=== PATIENT | female | born 1970 | race Caucasian/White ===

== ENCOUNTER 2019-01-27 14:08 | Inpatient (IN) | payer BC ==
[~2019-01-27] VITALS: Ht 154.9 cm; Wt 113.1 kg
[2019-01-27] MEDS: SODIUM CHLORIDE 0.9% 1000ML 1,000 ML IV SCH
[~2019-01-27 14:08] MED LIST: ALLERCLEAR10 MG PO; AMIODARONE HCL200 MG PO; ASPIRIN325 MG PO; CARAFATE1 GM/10 ML PO; CARDIZEM CD180 MG PO; DICYCLOMINE HCL20 MG PO; ELIQUIS5 MG PO; ESOMEPRAZOLE MA40 MG PO; GLIMEPIRIDE2 MG PO; LISINOPRIL10 MG PO; METOPROLOL TART25 MG PO; OTEZLA30 MG PO; PIOGLITAZONE HC45 MG PO; PROGESTERONE200 MG PO; THYROID NP PO; ULTRAM50 MG PO; ZOFRAN4 MG PO
[2019-01-27 16:41] LABS: BASOPHILS % 0.1 % (0.0-1.0); EOSINOPHILS # (AUTO) 0.1 (0.0-0.4); EOSINOPHILS % 0.8 % (0.0-6.0); HEMATOCRIT 41.8 % (34.2-44.1); HEMOGLOBIN 13.4 g/dL (12.0-16.0); LYMPHOCYTES # (AUTO) 1.1 (1.0-3.2); LYMPHOCYTES % 7.3 % (18.0-39.1); MEAN CORPUSCULAR HGB CONC 32.1 g/dL (31-35); MEAN CORPUSCULAR VOLUME 87.3 fL (81-99); MONOCYTES # (AUTO) 0.8 (0.2-0.8); MONOCYTES % 5.4 % (4.4-11.3); NEUTROPHILS # (AUTO) 13.3 (2.1-6.9); NEUTROPHILS % 85.8 % (38.7-80.0); PLATELET COUNT 411 x10e3/uL (140-360); RED BLOOD COUNT 4.79 x10e6/uL (3.6-5.1); RED CELL DISTRIBUTION WIDTH 13.7 % (11.7-14.4)
[2019-01-27] MEDS ORDERED: MORPHINE SULFATE INJ 4 MG/ML INJ 1ML IV STA (16:47)
[2019-01-27] MEDS ORDERED: SODIUM CHLORIDE 0.9% 1000ML 1,000 ML IV STA ×2 (16:47)
[2019-01-27] MEDS ORDERED: FAMOTIDINE 20 MG/2 ML VIAL IV STA (16:47)
[2019-01-27] MEDS ORDERED: ONDANSETRON HCL INJ 2MG/ML 2ML 2 MG/ML VIAL IV STA (16:47)
[2019-01-27 17:03] LABS: ALBUMIN 3.5 g/dL (3.5-5.0); ALBUMIN/GLOBULIN RATIO 0.8 (0.8-2.0); ANION GAP 17.2 mmol/L (8-16); CALCIUM 9.4 mg/dL (8.4-10.2); CREATININE, SERUM 1.59 mg/dL (0.57-1.11); POTASSIUM 4.2 mmol/L (3.5-5.1)
[2019-01-27] MEDS ORDERED: DIATRIZOATE MEGL/DIATRIZOA SOD 30 ML BTL PO ONE (17:29)
[2019-01-27] MEDS ORDERED: MIDAZOLAM HCL 2 MG/2 ML VIAL ONE (17:47)
[2019-01-27] MEDS ORDERED: FENTANYL CITRATE/PF 100MCG/2 ML INJ ONE (17:47)
[2019-01-27] MEDS ORDERED: PROPOFOL IV EMULSION 10 MG/ML 20 ML VIAL ONE (18:20)
[2019-01-27] MEDS ORDERED: SEVOFLURANE INHAL SOLN 250 ML PEN BTL ONE (18:20)
[2019-01-27] MEDS ORDERED: ONDANSETRON HCL INJ 2MG/ML 2ML 2 MG/ML VIAL ONE (18:20)
[2019-01-27] MEDS ORDERED: ROCURONIUM BROMIDE 10 MG/ML 5ML VIAL ONE (18:20)
[2019-01-27] MEDS ORDERED: DEXAMETHASONE SOD PHOS INJ 4 MG/ML VIAL ONE (18:20)
[2019-01-27] MEDS ORDERED: LIDOCAINE HCL 2% LOCAL INJ 5 ML SDV VIAL INJ ONE (18:20)
[2019-01-27] MEDS ORDERED: SUCCINYLCHOLINE CHLORIDE 20 MG/ML 10ML VIAL ONE (18:20)
--- NOTE | 2019-01-27 18:38 | Diagnostic Imaging Report ---
EXAMINATION: CHEST SINGLE (PORTABLE) INDICATION: Pain. ^ERMD ORDER ^Y COMPARISON: 01/22/2019. FINDINGS: TUBES and LINES: None. Left sided PICC line has been removed. Mild bibasilar atelectasis. Scalloping of the right hemidiaphragm. There is no evidence of pneumonia or pulmonary edema. PLEURA: No pleural effusion or pneumothorax. HEART AND MEDIASTINUM: Cardiac size is mildly enlarged. BONES AND SOFT TISSUES: No acute osseous lesion. Soft tissues are unremarkable. UPPER ABDOMEN: No free air under the diaphragm. Tube projected on the epigastric region to the left of midline may be overlying. IMPRESSION: No acute thoracic abnormality. Signed by: Dr. Rosi Toney M.D. on 01/27/2019 6:35 PM
[2019-01-27 19:17] LABS: CREATINE KINASE MB 0.4 ng/mL (0-5.0); THYROID STIMULATING HORMONE 2.391 uIU/mL (0.350-4.940)
[2019-01-27] MEDS ORDERED: DEXTROSE 50% SYRINGE 50 ML IV PRN (19:45)
[2019-01-27] MEDS ORDERED: ONDANSETRON HCL INJ 2MG/ML 2ML 2 MG/ML VIAL IV PRN (19:45)
--- NOTE | 2019-01-27 19:45 | Diagnostic Imaging Report ---
EXAM: CT Chest, Abdomen and Pelvis WITHOUT contrast INDICATION: Abdominal pain. Shortness of breath. Bilateral leakage? COMPARISON: None. TECHNIQUE: Chest, abdomen and pelvis were scanned utilizing a multidetector helical scanner from the lung apex to the pubic symphysis without administration of IV contrast. Absence of intravenous contrast decreases sensitivity for detection of focal lesions and vascular pathology. Coronal and sagittal reformations were obtained. Routine protocol was performed. IV CONTRAST: None. ORAL CONTRAST: Gastrografin and water mixture. RADIATION DOSE: Total DLP: 1032.28 mGy*cm Estimated effective dose: (DLP x 0.015 x size factor) mSv COMPLICATIONS: None FINDINGS: Lack of intravenous limits evaluation. LINES and TUBES: Right upper quadrant surgical drain with distal tip in the left upper quadrant anteriorly just superior to the gastric body on image 49 series 2. LUNGS AND AIRWAYS: The lungs are unremarkable. Airways are normal. PLEURA: The pleural spaces are clear. HEART AND MEDIASTINUM: The thyroid gland is normal. No mediastinal, hilar or axillary lymphadenopathy. The heart is normal in size.. There is no pericardial effusion. There are mild atherosclerotic calcifications in the aorta and coronary arteries. HEPATOBILIARY: No focal hepatic lesions. No biliary ductal dilation. GALLBLADDER: There are cholecystectomy clips. SPLEEN: No splenomegaly. Punctate calcified granulomata. PANCREAS: No focal masses or ductal dilatation. ADRENALS: No adrenal nodules KIDNEYS/URETERS: 5 mm calculus in the distal right ureter on image 95 series 2, resulting in mild right hydroureteronephrosis. No cystic or solid mass lesions. Multiple right renal calculi, the largest measuring 1.1 cm in the lower pole on image 78. The left kidney is not visualized. GI TRACT: Postsurgical changes consistent with status post gastric bypass. There is oral contrast within the stomach and proximal small bowel without evidence of extra luminal contrast extravasation. There is no contrast within the bypassed portions of the stomach. The appendix is unremarkable. The colon is decompressed. There is fat stranding about the proximal descending colon posteriorly as seen on image 67 series 2, nonspecific, possibly postoperative. PELVIC ORGANS/BLADDER: Unremarkable. LYMPH NODES: No lymphadenopathy. VESSELS: Unremarkable. PERITONEUM / RETROPERITONEUM: Small amount of free fluid in the abdomen. Perigastric fat stranding, likely postoperative without likely fluid collections. BONES: There are degenerative changes in the lumbar spine. SOFT TISSUES: Unremarkable. IMPRESSION: 1. 5 mm calculus within the distal right ureter resulting in mild right hydroureteronephrosis. A few additional Nonobstructing right renal calculi. 2. Status post gastric bypass without evidence of leakage or obstruction. 3. No acute thoracic abnormality. Signed by: Dr. Rosi Toney M.D. on 01/27/2019 7:42 PM
[2019-01-27 20:00] VITALS: BP 120/55
[2019-01-27] MEDS ORDERED: CEFTRIAXONE SOD 1 GM/NS 50 ML 50 ML IV ONE (20:00)
[2019-01-27] MEDS ORDERED: MORPHINE SULFATE INJ 4 MG/ML INJ 1ML IV PRN (20:00)
[2019-01-27] MEDS ORDERED: SODIUM CHLORIDE 0.9% 1000ML 1,000 ML IV SCH (20:00)
--- NOTE | 2019-01-27 20:55 | NUR ---
OR STAFF ON UNIT TO TAKE PATIENT TO SURGERY
[2019-01-27] MEDS: INSULIN REGULAR, HUMAN 100 UNIT/1 ML 3ML VIAL SQ SCH (21:00)
[2019-01-27] MEDS ORDERED: B&O 60MG R/S 60 MG SUPP PR ONE (21:15)
[2019-01-27] MEDS ORDERED: IOPAMIDOL 300MG/ML 50ML INFUS..BTL IV ONE (21:15)
[2019-01-27] MEDS ORDERED: B&O 60MG R/S 60 MG SUPP PR PRN (21:30)
[2019-01-27 22:46] LABS: BACTERIA,URINE MANY /HPF; EPITHELIAL CELLS,URINE FEW /LPF; RBC,URINE >50 /HPF (0-5)
[2019-01-27 22:49] LABS: CLARITY,URINE CLOUDY (CLEAR); COLOR,URINE STRAW (YELLOW)
[2019-01-27 22:50] LABS: BILIRUBIN,URINE MODERATE (NEGATIVE); KETONES,URINE 1+ (NEGATIVE); LEUKOCYTE ESTERASE ,URINE NEGATIVE (NEGATIVE); NITRITE,URINE POSITIVE (NEGATIVE); PROTEIN,URINE DIPSTICK 2+ (NEGATIVE); URINE UROBILINOGEN 0.2 mg/dL (0.2 - 1)
[2019-01-27 23:00] VITALS: BP 120/55
--- NOTE | 2019-01-27 23:00 | NUR ---
Pt admitted to room 103. Pt alert to name, hospital, time, and diagnosis. Pt had cystoscopy and retrograde repair with right stent placement today. Pt transferred via stretcher with standby assist to bed. 20Fr Coude Pimentel straw colored urine, with no clots. Hx x1 week gastric sleeve with leak, MATT drainage with x3 healing trocar sites. New onset afib, hx left nephrectomy. Last BM 01/27. Skin arm and dry, excoriation under bilateral breasts and abdominal skin folds. Blanchable redness to sacrum. Denies SOB, denies pain at this time. Oriented to room, call light within reach. Bed low and locked.
[2019-01-28] VITALS (8 sets, daily range): BP systolic 107–142; BP diastolic 52–68
--- NOTE | 2019-01-28 00:51 | Consultation ---
DATE OF CONSULTATION: 01/27/2019 Urology Consultation. REASON FOR CONSULTATION: Obstructive uropathy. HISTORY OF PRESENT ILLNESS: Deepa Torrez is a 48-year-old woman with a history of an acquired solitary right kidney. The patient is status post total left nephrectomy for an atrophic left kidney. This is due to recurrent stone disease. This was done at the [facility] by Dr. Agee. The patient has a complicated recent medical history, but developed severe right-sided flank pain reported the emergency room, was determined to be in renal colic due to an obstructing distal right ureteral stone. The patient had smaller renal stones that were nonobstructing in the same kidney. She has hydronephrosis to that stone. She also has acute renal failure as a result. There was not enough urine collected to perform any additional tests beyond a urine test which was negative. The patient has been aneuric since she started this attack. PAST MEDICAL SURGICAL HISTORY: 1. Status post gastric bypass on 01/19/2019. 2. Atrial fibrillation diagnosed 01/20/2019. 3. Take back to the operating room for repair of an anastomotic leak 01/21/2019. 4. Status post left nephrectomy. 5. Status post total abdominal hysterectomy, bilateral salpingo-oophorectomy. 6. zero, para zero. 7. Diabetes mellitus. 8. Hypertension. 9. Hyperlipidemia. 10. Morbid obesity. 11. Ex-smoker. ALLERGIES: SULFA. CURRENT MEDICATIONS: Please refer to the MAR. SOCIAL HISTORY: The patient denies smoking ethanol and drug use. She chews nicotine gum. She used to smoke two packs per day of cigarettes, but quit two years ago. 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 She has supportive family at the bedside. FAMILY HISTORY: Noncontributory to the active urological problems. REVIEW OF SYSTEMS: Discussed as above in the history of present illness and past medical history, otherwise negative for all systems. PHYSICAL EXAMINATION: GENERAL: Morbidly obese woman lying in bed, in no apparent distress she is currently afebrile. VITAL SIGNS: Currently stable. ABDOMEN: Soft, nondistended. It is obese. It is tender in the right flank with right costovertebral angle tenderness. Kidneys not palpable without hepatosplenomegaly. No obvious evidence of hernia. There are intact incisions. For the remaining physical examination systems please refer to the admission history and physical as well as the ERT sheet. LABORATORY STUDIES: The patient's sodium is low at 134 her creatinine is elevated [place] 1.59[place] [address], hemoglobin 13.4, platelets 411,000, urinalysis was not performed due to inadequate urine and she had a negative test. CT scan of the abdomen and pelvis was done with oral contrast only. It revealed a 5 mm calculus in the distal right ureter with right hydroureteronephrosis with multiple renal calculi measuring 1.16 cm in the lower pole. The left kidney is absent. ASSESSMENT: 1. Solitary right kidney. 2. History of recurrent urolithiasis. 3. Right renal colic. 4. Right distal ureterolithiasis. 5. Right nephrolithiasis. 6. Right hydroureteronephrosis due to stone. 7. Acute renal failure. 8. Obesity. 9. Hyponatremia. 10. Leukocytosis. PLAN: 1. The patient received a dose of Rocephin by the emergency room physician. 2. I posted the patient for stat cystoscopy, retrograde pyelograms and insertion of stent. 3. The patient understands that she will have a temporary indwelling ureteral stent, requires followup and removal as well as additional stone management for her right nephrolithiasis. 4. I defer the hematological and electrolyte abnormalities to the admitting physician. 5. Ongoing urological followup is must including the performance of a metabolic stone workup. This will be done once we have rendered the patient stent free and stone free. Thank you much for involving us in care of your patient. We will be happy to follow her along with you as well as an outpatient. Clint Jimenez MD OH/MODL /[id number] cc: MD Jeffrey Jaramillo
[2019-01-28] MEDS: SODIUM CHLORIDE 0.9% 1000ML 1,000 ML IV SCH ×3 (03:37→20:15)
--- NOTE | 2019-01-28 04:13 | Operative Report ---
DATE OF PROCEDURE: 01/27/2019 SURGEON: Clint Jimenez MD PREOPERATIVE DIAGNOSES: 1. Right hydronephrosis due to stone. 2. Gross hematuria. POSTOPERATIVE DIAGNOSES: 1. Right hydronephrosis due to stone. 2. Gross hematuria. 3. Grade 1 cystocele. 4. Grade 1 rectocele. 5. Atrophic (senile) vaginitis. OPERATIONS PERFORMED: 1. Cystourethroscopy with bilateral ureteral catheterization and retrograde ureteropyelography (separate procedure performed for the hematuria). 2. Interpretation of retrograde ureteropyelography. 3. Supervision of fluoroscopy, no radiologist present. 4. Cystourethroscopy with insertion of right indwelling ureteral stent (separate procedure performed to relieve the hydronephrosis). 5. Pelvic examination under anesthesia. ANESTHESIA: General. COMPLICATIONS: None. CLINICAL SUMMARY: Deepa Torrez is a 48-year-old woman with a complex and an acute emergent problem. Please refer to consultation dictation from the same date. OPERATIVE PROCEDURE IN DETAIL: Informed consent was verified. Deepa Torrez was properly identified taken to the operating room, placed on the cystoscopy table in supine position. Anesthesia was uneventfully begun. The patient was then carefully gently repositioned in dorsal lithotomy position with all pressure points well padded. Her genitalia were prepared and draped in usual sterile fashion. The 22.5-Mohawk cystoscope sheath with obturator in place was atraumatically inserted into the patient's urethra and bladder was drained. Panendoscopy of the bladder revealed no suspicious mucosal lesions, no tumors, no stones, no diverticula. Normally positioned configured ureteral orifices were identified. There was a 22.5-Mohawk cystoscope sheath with obturator in place was atraumatically inserted in the patient's urethra. The bladder was drained of 30 mL of bloody urine. The urine was collected and sent for culture and sensitivity. Panendoscopy of the bladder revealed no suspicious mucosal lesions, no tumors, no stones. Normally positioned configured ureteral orifices were identified. There was trigonitis that was noted. An open-ended catheter was used to cannulate the left ureter and retrograde ureteral pyelograms were performed. It was then inserted in the right ureter and retrograde ureteral pyelograms were performed. With cystoscopic and fluoroscopic guidance, the right-sided indwelling ureteral stent was then placed it was coiled in the patient's kidneys as well as the patient's bladder. The retaining suture was cut short. The cystoscope was withdrawn. Pimentel catheter was placed, irrigated to and fro to ensure work properly. Pelvic examination under anesthesia revealed a minimal cystocele, minimal rectocele with atrophic (senile) vaginitis. No abnormal palpable pelvic masses could be appreciated. There were no obvious mucosal lesions. A belladonna and opium suppository were placed. The patient was uneventfully reversed from anesthesia, taken to recovery room in stable condition. Interpretation of retrograde ureteropyelography contrast was instilled in a retrograde fashion bilaterally. The left ureter had a cutoff sign at the location of the kidney consistent with prior nephrectomy. The ureter did not exhibit any filling defects and unobstructed drainage was observed fluoroscopically. The right hand side exhibited a filling defect corresponding to the stone noted on CT. A few centimeter proximal to the ureteral orifice. There was significant hydroureteronephrosis proximal to this filling defect which was freely floating in retrograde fashion from its region of obstruction. The stent was in good position coiled the patient's kidney as well as the bladder at the end of the case. We did not opacify the system well in order to avoid over injection of potentially infected system into potentially infected system that could potentially produce sepsis. Therefore, we opacified the system only enough in order to delineate the anatomy adequately for stent placement. There were no complications of the procedure. The patient tolerated the procedure well. Estimated blood loss was minimal. We will plan on admitting on proceeding with admission of the patient, close monitoring and of course ongoing urological followup. Stone management will be done electively at the later point once the patient is in her usual state of health. Clint Jimenez MD OH/MODL /[id number] cc: Clint Jimenez MD
[2019-01-28 05:31] LABS: BASOPHILS % 0.4 % (0.0-1.0); EOSINOPHILS # (AUTO) 0.4 (0.0-0.4); EOSINOPHILS % 3.3 % (0.0-6.0); HEMATOCRIT 35.9 % (34.2-44.1); LYMPHOCYTES # (AUTO) 2.2 (1.0-3.2); LYMPHOCYTES % 20.5 % (18.0-39.1); MEAN CORPUSCULAR HEMOGLOBIN 27.4 pg (28-32); MEAN CORPUSCULAR HGB CONC 30.6 g/dL (31-35); MEAN CORPUSCULAR VOLUME 89.5 fL (81-99); MONOCYTES % 9.4 % (4.4-11.3); NEUTROPHILS # (AUTO) 6.9 (2.1-6.9); NEUTROPHILS % 65.9 % (38.7-80.0); PLATELET COUNT 313 x10e3/uL (140-360); RED BLOOD COUNT 4.01 x10e6/uL (3.6-5.1); RED CELL DISTRIBUTION WIDTH 13.9 % (11.7-14.4)
[2019-01-28 05:53] LABS: ALBUMIN 2.8 g/dL (3.5-5.0); ALBUMIN/GLOBULIN RATIO 0.8 (0.8-2.0); ANION GAP 12.9 mmol/L (8-16); CALCIUM 8.2 mg/dL (8.4-10.2); CREATININE, SERUM 1.27 mg/dL (0.57-1.11); MAGNESIUM 2.1 MG/DL (1.3-2.1); PHOSPHORUS 4.4 MG/DL (2.3-4.7); POTASSIUM 3.9 mmol/L (3.5-5.1)
--- NOTE | 2019-01-28 07:00 | NUR ---
Report given to morning nurse. Pt sitting quietly in recliner. No acute distress noted.
--- NOTE | 2019-01-28 07:05 | NUR ---
BEDSIDE SHIFT REPORT RECEIVED FROM RN PHYSICIAN OFFICE RN. PT DENIES NEEDS AT THIS TIME.
[2019-01-28] MEDS: INSULIN REGULAR, HUMAN 100 UNIT/1 ML 3ML VIAL SQ SCH ×4 (07:30→20:16)
--- NOTE | 2019-01-28 07:54 | NUR ---
HPI: Patient presented to hospital last night with right flank pain and work up revealed acute renal insufficiency, right sided renal calculus with hydronephros is. She underwent emergency cystoscopy and ureteral stent placement last night with Dr. Clint Jimenez. She feels better today and her WBC has come down. P.E.: General- no acute distress Abdomen- soft, MATT output serosanguineous A/P: Hydronephrosis with HANK s/p Lap edmundo en y gastric bypass 01/19/19, s/p revision anastomosis 01/21/19, s/p right ureteral stent placement 01/27/19 -OK to dc the MATT drain -Advance to pureed diet -F/u in clinic in February
--- NOTE | 2019-01-28 08:48 | Diagnostic Imaging Report ---
Chest, 1 view, 01/28/2019. History: Shortness of breath. Comparison: 01/27/2019. Findings: The cardiomediastinal silhouette and pulmonary vasculature are within normal limits for a portable exam. There is no focal consolidation or pleural effusion. There are no acute osseous or soft tissue abnormalities. Impression: No acute cardiopulmonary abnormality. Signed by: Philip Mclain on 01/28/2019 8:45 AM
[2019-01-28] MEDS: CEFTRIAXONE SOD 1 GM/NS 50 ML 50 ML IV SCH ×2 (08:50→20:15)
[2019-01-28] MEDS ORDERED: ONDANSETRON HCL 4 MG ORAL DISINTEGRATING TAB PO PRN (10:00)
--- NOTE | 2019-01-28 10:34 | History and Physical ---
CHIEF COMPLAINT: Right flank pain. HISTORY OF PRESENT ILLNESS: This is a 48-year-old white woman, who presents to [facility] with 1-day history of worsening right flank pain, accompanied by nausea, but no vomiting. The patient also states one day prior to admission, she noticed dark malodorous urine, but denies any dysuria or urinary frequency. In the emergency room, she was found have urinary tract infection and a CT of the abdomen and pelvis without intravenous contrast revealed an obstructing 5 mm calculus in the right ureter causing hydroureteronephrosis. The patient was also found to have a few additional nonobstructing right renal calculi. This woman only has one kidney on the right side. The patient was seen by Urology immediately, namely Dr. Clint Jimenez, who took the patient to the operating room and performed cystourethroscopy with insertion of a right indwelling ureteral stent. The patient also underwent retrograde ureteropyelography. The patient tolerated surgery quite well. In the emergency room, she was found to have white blood cell count of 15,400 with 85% segmented neutrophils. This morning, white blood cell count 10,500 with 65% segmented neutrophils. Urinalysis performed in the emergency room, revealed cloudy urine with 2+ protein, 1+ ketones, 2+ blood, positive nitrates, moderate bilirubin, greater than 50 red blood cells per high-power field and 11 to 20 white blood cells per high-power field. Urinalysis also revealed many bacteria. In the emergency room, the patient was found to have a BUN and creatinine of 19 and 1.59 respectively. Today's BUN and creatinine after intravenous fluids and placement of a ureteral stent is 16 and 1.27 respectively. The patient was actually just admitted to [facility] last week for elective bariatric surgery, namely laparoscopic Jean-en-Y gastric bypass. Unfortunately, the patient developed an anastomotic leak, the causative experienced sepsis which led atrial flutter. The patient was seen by Cardiology, was started on appropriate cardiac medications. The patient was taken back to the operating room by her Bariatric Surgeon, namely Dr. Stef Donnelly, who performed a laparoscopic revision of gastrojejunostomy with placement of intraperitoneal drain. The patient subsequently underwent upper GI series with contrast that did not reveal any evidence of anastomotic leak after the revision. The patient was actually just sent home from [facility] on Saturday, January 24, 2019, REVIEW OF SYSTEMS: GENERAL: No fever or chills. Weight is stable. HEENT: No headaches. No visual changes. CARDIOVASCULAR/RESPIRATORY: No chest pain. No short of breath or cough. No palpitations. She was diagnosed with paraesophageal atrial flutter last week, that was thought to be secondary to anastomotic leak. GI: Complaint intense nausea yesterday on day of admission, but no vomiting. : The patient stated that her urine was dark and malodorous for one day, but denies any urinary frequency. She did complain of worsening right-sided flank pain for one day prior to admission. NEUROMUSCULAR: Right-sided flank pain as per HPI. No limb weakness or numbness. ALLERGIES: SULFA ANTIBIOTICS. HOME MEDICATIONS: 1. Amiodarone 200 mg b.i.d. 2. Apixaban 5 mg b.i.d. 3. Otezla 30 mg b.i.d. 4. Diltiazem CD 180 mg daily. 5. Esomeprazole 40 mg daily. 6. Lisinopril 10 mg at bedtime. 7. Loratadine 10 mg daily. 8. Metoprolol tartrate 25 mg b.i.d. 9. Ondansetron 4 mg every 6 hours p.r.n. nausea, vomiting. 10. Pioglitazone 30 mg daily. 11. Progesterone 200 mg at bedtime. 12. Tramadol 50 mg q.6 hours p.r.n. pain. 13. Thyroid replacement therapy once daily. PAST MEDICAL HISTORY: 1. Extreme obesity, BMI 51. 2. Sleep apnea. 3. Type 2 diabetes mellitus. 4. Hypertensive heart disease. 5. Gastroesophageal reflux disease. 6. Hypothyroidism. 7. Psoriatic arthritis. 8. Recurrent kidney stones. 9. 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 PAST SURGICAL HISTORY: 1. Laparoscopic Jean-en-Y gastric bypass on January 19, 2019. 2. Laparoscopic revision of gastrojejunostomy with placement of intraperitoneal drain on January 21, 2019. 3. Right knee arthroscopy. 4. Hysterectomy. 5. Tonsillectomy. 6. Laparoscopic cholecystectomy. 7. Left nephrectomy because of complications from left-sided fungal pyelonephritis/scarring. FAMILY HISTORY: Multiple members with hypertension and diabetes mellitus. SOCIAL HISTORY: This woman is employed. This woman has a female significant other, who is very much involved in her health care needs. 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 The patient states she quit smoking tobacco in 2017. The patient states she drinks alcohol rarely. The patient states she does chew nicotine gum to help continue her tobacco cessation. PHYSICAL EXAMINATION: GENERAL: She is awake, alert, in no distress. Very pleasant. Her female partner is at bedside. VITAL SIGNS: Height 5 feet 1 inch, weight 250 pounds, BMI 47. Blood pressure is 142/68, pulse 64, respiratory rate 16, temperature 98.2, and oxygen saturation 100% on room air. INTEGUMENT: Skin is warm and dry. No pallor, jaundice, or diaphoresis. The patient has numerous tattoos. HEENT: Clear moist mucous membranes. NECK: Supple. CARDIOVASCULAR: Distant heart sounds. Regular rate and rhythm with an S4 gallop. LUNGS: No rales, rhonchi, or wheezes. ABDOMEN: Soft. She has an intraperitoneal drain in place from last week's bariatric surgery that has serosanguinous fluid. She has bowel sounds in all four quadrants. EXTREMITIES: No edema or deformity. NEUROLOGIC: Intact. No focal deficits appreciated. DIAGNOSIS: 1. Right obstructing ureteral stone with hydronephrosis. 2. Urinary tract infection. 3. Extreme obesity, BMI 47, complicated with underlying hypertension, diabetes mellitus, sleep apnea. 4. Recent laparoscopic Jean-en-Y gastric bypass on January 19, 2019. 5. Recent laparoscopic revision of gastrojejunostomy to repair anastomotic leak on January 21, 2019. 6. Recent atrial flutter. 7. Hypertensive heart disease. 8. Obstructive sleep apnea. 9. Type 2 diabetes mellitus. 10. Acute renal insufficiency, secondary to postobstructive process (right-sided kidney stone). 11. Status post right-sided indwelling ureteral stent placement. PLAN: 1. Appreciate Urology's emergent placement of right-sided ureteral stent. 2. Intravenous fluids. 3. Follow renal function. 4. Follow urine culture. 5. Intravenous antibiotics for the patient's urinary tract infection. 6. Place on telemetry. 7. Continue cardiac medications. 8. Pain control. I spent an hour in the care of this patient. MD AMAURI Ferguson/MACHO /[id number] MTDAdrienne
--- NOTE | 2019-01-28 11:14 | NUR ---
MATT DRAIN DC'D AT THIS TIME. TIP INTACT. PT TOLERATED. NEW DRESSING PLACED.
[2019-01-28 11:40] LABS: INR 1.3; PARTIAL THROMBOPLASTIN TIME 37.2 seconds (23.8-35.5); PROTHROMBIN TIME 15.4 seconds (11.9-14.5)
[2019-01-28] MEDS: PIOGLITAZONE HCL 15 MG TAB PO SCH (11:59)
[2019-01-28] MEDS: METOPROLOL TARTRATE 25 MG TAB PO SCH ×2 (12:00→17:38)
[2019-01-28] MEDS: DILTIAZEM HCL 180 MG CAP ER PO SCH (12:02)
[2019-01-28] MEDS: LORATADINE 10 MG TAB PO SCH (12:03)
[2019-01-28] MEDS: PANTOPRAZOLE SOD 40 MG TABEC PO SCH (12:05)
[2019-01-28] MEDS: APREMILAST 30 MG PO SCH (17:00)
[2019-01-28] MEDS: APIXABAN 5 MG TABLET PO SCH (17:38)
[2019-01-28] MEDS: AMIODARONE HCL 200 MG TAB PO SCH (17:38)
[2019-01-28] MEDS: PHENAZOPYRIDINE HCL 100 MG TAB PO PRN (20:35)
[2019-01-28] MEDS: TRAMADOL HCL 50 MG TAB PO PRN (20:39)
[2019-01-28] MEDS: LISINOPRIL 10 MG TAB PO SCH (20:40)
--- NOTE | 2019-01-28 21:30 | NUR ---
No resp.distress.pain medication given.pericare given.iv fluid running.bed locked and in lowest position.phone and call light within reach.instructed to call for assistance as needed.
[2019-01-29] VITALS (8 sets, daily range): BP systolic 110–135; BP diastolic 53–65
[2019-01-29] MEDS: SODIUM CHLORIDE 0.9% 1000ML 1,000 ML IV SCH (03:37)
[2019-01-29 05:40] LABS: BASOPHILS % 0.4 % (0.0-1.0); EOSINOPHILS # (AUTO) 0.5 (0.0-0.4); EOSINOPHILS % 5.4 % (0.0-6.0); HEMATOCRIT 35.7 % (34.2-44.1); HEMOGLOBIN 10.9 g/dL (12.0-16.0); LYMPHOCYTES # (AUTO) 2.3 (1.0-3.2); MEAN CORPUSCULAR HEMOGLOBIN 27.5 pg (28-32); MEAN CORPUSCULAR HGB CONC 30.5 g/dL (31-35); MEAN CORPUSCULAR VOLUME 90.2 fL (81-99); MONOCYTES # (AUTO) 0.8 (0.2-0.8); MONOCYTES % 9.1 % (4.4-11.3); NEUTROPHILS # (AUTO) 4.8 (2.1-6.9); NEUTROPHILS % 57.6 % (38.7-80.0); PLATELET COUNT 322 x10e3/uL (140-360); RED BLOOD COUNT 3.96 x10e6/uL (3.6-5.1); RED CELL DISTRIBUTION WIDTH 14.1 % (11.7-14.4)
[2019-01-29] MEDS: PHENAZOPYRIDINE HCL 100 MG TAB PO PRN ×2 (05:48→12:06)
[2019-01-29] MEDS: TRAMADOL HCL 50 MG TAB PO PRN ×2 (05:48→12:07)
[2019-01-29 06:02] LABS: ALBUMIN 2.7 g/dL (3.5-5.0); ALBUMIN/GLOBULIN RATIO 0.8 (0.8-2.0); ANION GAP 10.8 mmol/L (8-16); CALCIUM 8.4 mg/dL (8.4-10.2); CREATININE, SERUM 1.13 mg/dL (0.57-1.11); POTASSIUM 4.8 mmol/L (3.5-5.1)
--- NOTE | 2019-01-29 07:00 | NUR ---
BED SIDE SHIFT REPORT GIVEN TO THE ONCOMING RN.STABLE CONDITION.
--- NOTE | 2019-01-29 07:01 | NUR ---
walking rounds completed, change of shift report received from manager shift RN, pt resting, no signs of distress. will continue to assess.
[2019-01-29] MEDS: INSULIN REGULAR, HUMAN 100 UNIT/1 ML 3ML VIAL SQ SCH ×4 (07:30→21:00)
[2019-01-29] MEDS: CEFTRIAXONE SOD 1 GM/NS 50 ML 50 ML IV SCH (08:00)
[2019-01-29] MEDS: METOPROLOL TARTRATE 25 MG TAB PO SCH ×2 (09:00→17:05)
[2019-01-29] MEDS: APREMILAST 30 MG PO SCH ×2 (09:00→16:53)
[2019-01-29] MEDS: PANTOPRAZOLE SOD 40 MG TABEC PO SCH (09:43)
[2019-01-29] MEDS: PIOGLITAZONE HCL 15 MG TAB PO SCH (09:44)
[2019-01-29] MEDS: AMIODARONE HCL 200 MG TAB PO SCH ×2 (09:46→17:05)
[2019-01-29] MEDS: APIXABAN 5 MG TABLET PO SCH ×2 (09:46→17:05)
[2019-01-29] MEDS: DILTIAZEM HCL 180 MG CAP ER PO SCH (09:46)
[2019-01-29] MEDS: LORATADINE 10 MG TAB PO SCH (09:46)
--- NOTE | 2019-01-29 09:47 | NUR ---
CANAS DC'D AT THIS TIME. TIP INTACT, PT TOLERATED. PT DUE TO VOID BY 1600. SERIAL URINE ORDERED.
--- NOTE | 2019-01-29 19:00 | NUR ---
RECEIVED THE PT IN REPORT.LYEING IN THE RECYLINER.STABLE CONDITION.
[2019-01-29] MEDS: LISINOPRIL 10 MG TAB PO SCH (21:00)
--- NOTE | 2019-01-29 23:53 | NUR ---
Collecting serial urine.aaox4.ambulates.resting .stable condition.
[2019-01-30] VITALS: BP 166/62
[2019-01-30] MEDS: PHENAZOPYRIDINE HCL 100 MG TAB PO PRN (02:49)
[2019-01-30] MEDS: TRAMADOL HCL 50 MG TAB PO PRN (02:50)
--- NOTE | 2019-01-30 03:10 | Consultation ---
DATE OF CONSULTATION: 01/29/2019 Cardiology Consult Note REASON FOR CONSULT: History of atrial flutter with RVR. CHIEF COMPLAINT: Right flank pain. HISTORY OF PRESENT ILLNESS: A 48-year-old woman, who is known to our service, morbidly obese, status post gastric bypass surgery, was recently admitted to the hospital and was noted to have atrial flutter with RVR with wide-complex aberrancy, converted to sinus rhythm with IV amiodarone and started on anticoagulation, was discharged recently but presented once again with flank pain and suspected UTI. Currently, she is asymptomatic from a cardiovascular standpoint. Reports leg pain. Denies any chest pain, palpitations, syncope, or heart failure symptoms. REVIEW OF SYSTEMS: As per HPI, otherwise negative. ALLERGIES: TO SULFA, ANTIBIOTICS. OUTPATIENT MEDICATIONS: Reviewed. Please see MAR for details. PAST MEDICAL HISTORY: 1. Morbid obesity. 2. Sleep apnea. 3. Diabetes. 4. Hypertension. 5. GERD. 6. Hypothyroidism. 7. Psoriatic arthritis. 8. Recurrent kidney stones. 9. History of left nephrectomy. PAST SURGICAL HISTORY: 1. Laparoscopic Jean-en-Y gastric bypass on January 19, 2019. 2. Laparoscopic revision of gastrojejunostomy with placement of intraperitoneal drain on January 21. 3. Right knee surgery. 4. Hysterectomy. 5. Tonsillectomy. 6. Laparoscopic cholecystectomy. 7. Left nephrectomy because of complications from pyelonephritis. FAMILY HISTORY: Noncontributory. SOCIAL HISTORY: She does not smoke, drink, or abuse drugs. PHYSICAL EXAMINATION: VITAL SIGNS: Temperature afebrile, pulse 64, blood pressure 142/68, saturating 100% on room air. GENERAL: A well developed, well nourished, morbidly obese, in no acute distress. CARDIOVASCULAR: Difficult exam due to obesity. Regular rate and rhythm. No murmurs, rubs, or gallops. LUNGS: Clear to auscultation. ABDOMEN: Very obese, soft, nontender. Drain in place. EXTREMITIES: No edema. NEURO AND PSYCH: Alert and oriented to person, place, and time. Normal affect. INPATIENT MEDICATIONS: Reviewed. LABORATORY DATA: Reviewed. TELEMETRY DATA: Reviewed, shows normal sinus rhythm. ASSESSMENT AND PLAN: 1. Atrial flutter, currently in sinus rhythm. 2. Right obstructing ureteral stone with hydronephrosis. 3. Urinary tract infection. 4. History of obesity, status post recent gastric bypass complicated by anastomotic leak, status post repair. 5. Hypertensive heart disease. PLAN: Continue apixaban and amiodarone. Remains in sinus rhythm. We will continue to follow. Thank you for this consult. MD TAMIKO Avendaño/MACHO /[id number]
[2019-01-30 04:00] VITALS: BP 101/46
[2019-01-30 06:21] LABS: ALBUMIN 2.8 g/dL (3.5-5.0); ALBUMIN/GLOBULIN RATIO 0.9 (0.8-2.0); ANION GAP 13.3 mmol/L (8-16); CALCIUM 8.2 mg/dL (8.4-10.2); CREATININE, SERUM 1.12 mg/dL (0.57-1.11); POTASSIUM 4.3 mmol/L (3.5-5.1)
--- NOTE | 2019-01-30 07:00 | NUR ---
Bed side shift report given to the oncoming Rn.stable condition.
--- NOTE | 2019-01-30 07:01 | NUR ---
walking rounds completed and shift change report received from retail shift supervisor RN. pt resting, in stable condition.
[2019-01-30 07:02] LABS: BASOPHILS % 0.2 % (0.0-1.0); EOSINOPHILS # (AUTO) 0.5 (0.0-0.4); EOSINOPHILS % 5.4 % (0.0-6.0); HEMATOCRIT 34.3 % (34.2-44.1); HEMOGLOBIN 10.5 g/dL (12.0-16.0); LYMPHOCYTES % 23.6 % (18.0-39.1); MEAN CORPUSCULAR HEMOGLOBIN 27.9 pg (28-32); MEAN CORPUSCULAR HGB CONC 30.6 g/dL (31-35); MONOCYTES # (AUTO) 0.9 (0.2-0.8); MONOCYTES % 10.5 % (4.4-11.3); NEUTROPHILS # (AUTO) 5.1 (2.1-6.9); NEUTROPHILS % 59.9 % (38.7-80.0); PLATELET COUNT 318 x10e3/uL (140-360); RED BLOOD COUNT 3.77 x10e6/uL (3.6-5.1); RED CELL DISTRIBUTION WIDTH 14.2 % (11.7-14.4)
[2019-01-30] MEDS: INSULIN REGULAR, HUMAN 100 UNIT/1 ML 3ML VIAL SQ SCH (07:30)
[2019-01-30 08:07] VITALS: BP 101/46
[2019-01-30 08:12] VITALS: BP 106/54
[2019-01-30] MEDS: PIOGLITAZONE HCL 15 MG TAB PO SCH (08:17)
[2019-01-30] MEDS: APREMILAST 30 MG PO SCH (08:17)
[2019-01-30] MEDS: PANTOPRAZOLE SOD 40 MG TABEC PO SCH (08:17)
[2019-01-30] MEDS: AMIODARONE HCL 200 MG TAB PO SCH (08:18)
[2019-01-30] MEDS: DILTIAZEM HCL 180 MG CAP ER PO SCH (08:18)
[2019-01-30] MEDS: LORATADINE 10 MG TAB PO SCH (08:18)
[2019-01-30] MEDS: APIXABAN 5 MG TABLET PO SCH (08:19)
[2019-01-30] MEDS: METOPROLOL TARTRATE 25 MG TAB PO SCH (08:21)
[2019-01-30] MEDS ORDERED: CIPRO500 MG PO (09:29)
[2019-01-30] MEDS ORDERED: PYRIDIUM100 MG PO (09:30)
[2019-01-30] MEDS ORDERED: TYLENOL WITH C1 EACH PO (09:31)
--- NOTE | 2019-01-30 10:12 | Discharge Summary ---
ADMIT DIAGNOSES: 1. Right obstructing ureteral stone with right-sided hydronephrosis. 2. Urinary tract infection. 3. Extreme obesity, BMI 47 complicated underlying hypertension, diabetes mellitus, sleep apnea. 4. Recent laparoscopic Jean-en-Y gastric bypass on January 19, 2019. 5. Recent laparoscopic revision of gastrojejunostomy to repair anastomotic leak on January 21, 2019. 6. Recent atrial flutter. 7. Hypertensive heart disease. 8. Obstructive sleep apnea. 9. Type 2 diabetes mellitus. 10. Acute renal insufficiency secondary to postobstructive process (right-sided kidney stone). DISCHARGE DIAGNOSES: 1. Status post right-sided indwelling ureteral stent placement. 2. Urinary tract infection, resolved. 3. Acute renal insufficiency secondary to post obstructive process, resolved. 4. Extreme obesity, BMI 47 complicating underlying hypertension, diabetes mellitus, and sleep apnea. 5. Recent laparoscopic Jean-en-Y gastric bypass on January 19, 2019. 6. Recent laparoscopic revision of gastrojejunostomy to repair anastomotic leak on January 21, 2019. 7. Recent atrial flutter. 8. Hypertensive heart disease. 9. Obstructive sleep apnea. HOSPITAL COURSE: This is a 48-year-old white woman, who was initially admitted to [facility] with diagnosis of right obstructing ureteral stone with right-sided hydronephrosis. This situation was particularly troublesome since the patient only has one kidney on the right side. She also was found to have acute renal insufficiency secondary to this postobstructive process, namely the right-sided ureteral stone. The right-sided obstructive ureteral stone was appreciated on CT of the abdomen and pelvis that also revealed right-sided hydronephrosis. The patient was seen emergently by urologist namely Dr. Clint Jimenez, who performed the cystourethroscopy with bilateral ureteral catheterization and retrograde ureteral pyelography. During this procedure, he placed a right indwelling ureteral stent. The patient tolerated the procedure quite well. The patient's pain improved dramatically. On admission, white blood cell count was 15,400 with 85% segmented neutrophils. On day of discharge, white blood cell count was 8400 with 59% segmented neutrophils. On admission, urinalysis was positive for blood, nitrites and revealed greater than 50 red blood cells per high-power field, 11-20 white blood cells per high-power field and many bacteria. Urine cultures, however, did not reveal any bacterial growth. The patient's BUN and creatinine on admission were 19 and 1.59 respectively. On day of discharge, the patient's BUN and creatinine was 9 and 1.12 respectively. The patient's situation was complicated by the fact that a week prior she had undergone laparoscopic Jean-en-Y gastric bypass on January 19, 2019. Two days later, the patient was taken back to the operating room because she was found to have an anastomotic leak that caused her to become septic and go into atrial flutter. The patient thus underwent laparoscopic revision of the gastrojejunostomy to repair the anastomotic leak. The second bariatric surgery was performed on January 21, 2019. Both bariatric surgeries were performed by Dr. Stef Donnelly. The patient's atrial flutter resolved on her last admission. During this hospitalization, she remained in normal sinus rhythm. However, during this hospital stay, she was continued on oral amiodarone, diltiazem, and metoprolol as well as Eliquis for anticoagulation. The patient's hospitalization during this hospital stay was unremarkable. During this hospitalization, the patient was found to have a TSH level of 4.809. CONDITION ON DISCHARGE: Stable. DISCHARGE MEDICATIONS: 1. Ciprofloxacin 250 mg twice a day for 14 days. 2. Tramadol 50 mg every 6 hours p.r.n. pain, 60 prescribed, 1 refill. 3. Pyridium 200 mg t.i.d. for 14 days, 1 refill. 4. Eliquis 5 mg b.i.d. 5. Amiodarone 200 mg b.i.d. 6. Loratadine 10 mg daily. 7. Diltiazem ER 180 mg daily. 8. Metoprolol tartrate 25 mg b.i.d. 9. Pantoprazole 40 mg daily. 10. Pioglitazone 30 mg daily. 11. Otezla 30 mg b.i.d. 12. Lisinopril 10 mg at bedtime. 13. Ondansetron 4 mg oral disintegrating tablets every 6 hours p.r.n. nausea, vomiting. 14. [place] Thyroid 60 mg daily. FOLLOWUP INSTRUCTIONS: The patient is instructed to follow up with her new primary care physician name myself, Dr. Fabian Bishop within next 10 to 14 days. The patient will follow up with her urologist namely Dr. Clint Jimenez within 2 weeks and she will follow up with her bariatric surgeon namely Dr. Stef Donnelly also in 2 weeks. MD AMAURI Ferguson/MACHO /[id number] cc: MD Clint Garcia MD MTDD
[2019-03-12] MEDS ORDERED: XYZAL5 MG PO (11:22)
[2019-03-12] MEDS ORDERED: CEFUROXIME500 MG PO (11:22)
[2019-03-12] MEDS ORDERED: PANTOPRAZOLE SO40 MG PO (11:22)
== END 2019-01-30 10:13 | disposition home or self-care (01) | DRG 660 ==
LOC: ER 14:08 → OR 21:09 → ERHOLD 21:13 → MED/SURG 22:59
PROVIDERS: ADMIT Internal Medicine; ATTEND Urology
PROC: 0T788DZ Dilation of Bilateral Ureters with Intraluminal Device, Via Natural or Artificial Opening Endoscopic (ICD-10-PCS; 2019-01-27)
PROC: BT14ZZZ Fluoroscopy of Kidneys, Ureters and Bladder (ICD-10-PCS; principal; 2019-01-27 21:15)
DX: N13.6 Pyonephrosis (principal); Z68.42 Body mass index [BMI] 45.0-49.9, adult; N20.1 Calculus of ureter; I48.92 Unspecified atrial flutter; Z68.43 Body mass index [BMI] 50.0-59.9, adult; E87.1 Hypo-osmolality and hyponatremia; N39.0 Urinary tract infection, site not specified; I10 Essential (primary) hypertension; E11.9 Type 2 diabetes mellitus without complications; G47.33 Obstructive sleep apnea (adult) (pediatric); N17.9 Acute kidney failure, unspecified; R31.0 Gross hematuria; N95.2 Postmenopausal atrophic vaginitis; Z98.84 Bariatric surgery status; E87.5 Hyperkalemia; Z90.5 Acquired absence of kidney; L40.50 Arthropathic psoriasis, unspecified; I11.9 Hypertensive heart disease without heart failure; E66.01 Morbid (severe) obesity due to excess calories
CPT/HCPCS: 36415; 71045; 71250; 74176; 74420; 80053; 81001; 81025; 82550; 82553; 82948; 83690; 83735; 83880; 83970; 84100; 84443; 84484; 84550; 85025; 85610; 85730; 87086; 93005; 96361; 99284; C1758; C2617; J0330; J0696; J1100; J2001; J2250; J2270; J2405; J3010; J7030

== ENCOUNTER → 2019-03-13 | Day surgery (SDC) | payer BC ==
[2019-03-12 11:49] LABS: BASOPHILS % 0.3 % (0.0-1.0); EOSINOPHILS # (AUTO) 0.1 (0.0-0.4); EOSINOPHILS % 1.9 % (0.0-6.0); HEMATOCRIT 40.7 % (34.2-44.1); HEMOGLOBIN 12.9 g/dL (12.0-16.0); LYMPHOCYTES # (AUTO) 1.7 (1.0-3.2); LYMPHOCYTES % 29.3 % (18.0-39.1); MEAN CORPUSCULAR HEMOGLOBIN 27.9 pg (28-32); MEAN CORPUSCULAR HGB CONC 31.7 g/dL (31-35); MEAN CORPUSCULAR VOLUME 87.9 fL (81-99); MONOCYTES # (AUTO) 0.9 (0.2-0.8); MONOCYTES % 15.2 % (4.4-11.3); PLATELET COUNT 251 x10e3/uL (140-360); RED BLOOD COUNT 4.63 x10e6/uL (3.6-5.1)
[2019-03-12 12:13] LABS: ANION GAP 16.2 mmol/L (8-16); CALCIUM 9.4 mg/dL (8.4-10.2); CREATININE, SERUM 1.05 mg/dL (0.57-1.11); POTASSIUM 3.2 mmol/L (3.5-5.1)
--- NOTE | 2019-03-12 12:19 | Diagnostic Imaging Report ---
Exam: KUB - 2 views Indication: Preoperative Comparison: CT abdomen and pelvis of 01/27/2019, retrograde pyelogram of 01/27/2019 Findings: Right internal nephroureteral stent in place. No radiographically apparent renal calculi. Status post cholecystectomy. Nonobstructive bowel gas pattern. Surgical sutures in the left abdomen related to prior nephrectomy. No acute osseous injury. Impression: Right internal nephroureteral stent in place. Signed by: Nerissa Latham MD on 03/12/2019 12:16 PM
[~2019-03-13] MED LIST changes: +CEFUROXIME500 MG PO; +CIPRO500 MG PO; +DESFLURANE 240 ML BTL INH ONE; +DEXAMETHASONE SOD PHOS INJ 4 MG/ML VIAL ONE; +FENTANYL CITRATE/PF 100MCG/2 ML INJ ONE; +KETOROLAC TROMETHAMINE 30 MG/ML VIAL ONE; +LIDOCAINE HCL 2% LOCAL INJ 5 ML SDV VIAL INJ ONE; +MACROBID 100 M100 MG PO; +MIDAZOLAM HCL 2 MG/2 ML VIAL ONE; +NORCO 5-325 TA1 EACH PO; +NP THYROID90 MG PO; +ONDANSETRON HCL INJ 2MG/ML 2ML 2 MG/ML VIAL ONE; +OXYBUTYNIN CHLOR5 MG PO; +PANTOPRAZOLE SO40 MG PO; +PIPER-TAZ 3.375 GM 50 ML ONE; +PROAIR HFA INH8.5 GM INH; +PROPOFOL IV EMULSION 10 MG/ML 20 ML VIAL ONE; +PYRIDIUM100 MG PO; +ROCURONIUM BROMIDE 10 MG/ML 5ML VIAL ONE; +TYLENOL WITH C1 EACH PO; +XYZAL5 MG PO
[2019-03-13 09:30] VITALS: BP 143/71
--- NOTE | 2019-04-27 09:29 | Operative Report ---
DATE OF PROCEDURE: 03/13/2019 SURGEON: Clint Jimenez MD PREOPERATIVE DIAGNOSES: 1. Right nephrolithiasis. 2. Right indwelling ureteral stent. POSTOPERATIVE DIAGNOSES: 1. Right nephrolithiasis. 2. Right indwelling ureteral stent. 3. Grade 1 rectocele. 4. Atrophic (senile) vaginitis. OPERATIONS PERFORMED: 1. Cystourethroscopy with complicated removal of right indwelling ureteral stent (separate procedure performed for the diagnosis of stent ). 2. Right ureteroscopy with holmium laser lithotripsy, stone extraction and placement of a new stent (separate procedure performed for the large volume urolithiasis). 3. Urological services with supervision and interpretation of ureteroscopy. 4. Interpretation of retrograde ureteropyelography. 5. Supervision of fluoroscopy, no radiologist present. 6. Pelvic examination under anesthesia. ANESTHESIA: General. COMPLICATIONS: None. CLINICAL SUMMARY: Deepa Torrez is a 48-year-old woman with a solitary kidney due to the left nephrectomy, this was as a result of kidney stones. The patient had a ureteral stent placed for acute obstruction. She was brought to the operating room to manage stones that remain. She is aware of the risks of bleeding, infection, injury to adjacent structures, need for additional procedures and elected to proceed. OPERATIVE PROCEDURE IN DETAIL: Informed consent was verified Deepa Torrez was properly identified and taken to the operating room, placed on the cystoscopy table in supine position. Anesthesia was uneventfully begun. The patient was then carefully gently repositioned in dorsal lithotomy position with all pressure points well padded. Her genitalia were prepared and draped in usual sterile fashion. Cystoscope sheath with obturator in place was atraumatically inserted the patient's urethra and bladder was drained. Panendoscopy revealed no suspicious mucosal lesions. There were no tumors and no stones except for the one that was encrusting the stent emerging from the right ureteral orifice. A guidewire was then placed in the right ureter and guided to the level of the patient's kidney, the stent was then grasped completely removed and discarded. Semi-rigid ureteroscope was then placed alongside the guidewire and guided to the level of the mid ureter. Only fine sand was noted. A secondary guidewire was placed. The flexible ureteroscope sheath was then placed. Following this, flexible ureteroscopy was then performed, the ureteroscope was brought up to the level of the patient's proximal ureter and kidney. Numerous stones were identified. Numerous stones were grasped and pulled out atraumatically with Nitinol tipless basket until we reached the stone, it was too large it got stuck in the sheath. Therefore, a holmium laser was brought out. We pulverized the stone into countless small fragments. We then grasped all possible fragments until only small stone fragments that should be passable remained. The ureteroscope was withdrawn and stent was placed atraumatically. Interpretation of retrograde ureteropyelography contrast was instilled in retrograde fashion on the right-hand side. There was chronic appearing fullness, filling defect corresponding to the stones were identified. The stent was in good position, coiled the patient's kidney as well as the patient's bladder at the end of the case. Pelvic examination under anesthesia revealed a grade 1 rectocele with atrophic vaginitis. No abnormal palpable pelvic masses could be appreciated. There were no obvious mucosal lesions. The patient was then uneventfully reversed from anesthesia and taken to recovery in stable condition. There were no complications to the procedure. She tolerated the procedure well. Explicit postoperative instructions were given. We will plan to return the patient to the operating room for a right ureteroscopy in hopes of rendering the patient stent free and stone free. Clint Jimenez MD OH/MODL /[id number] cc: Fabian Bishop MD
== END | disposition home or self-care (01) ==
LOC: OR 05:13
PROVIDERS: ATTEND Urology
DX: N20.0 Calculus of kidney (principal); N81.6 Rectocele; N95.2 Postmenopausal atrophic vaginitis; E11.9 Type 2 diabetes mellitus without complications; K21.9 Gastro-esophageal reflux disease without esophagitis; G47.33 Obstructive sleep apnea (adult) (pediatric); I10 Essential (primary) hypertension; Z96.0 Presence of urogenital implants; Z88.2 Allergy status to sulfonamides; Z87.442 Personal history of urinary calculi; Z90.5 Acquired absence of kidney; Z01.812 Encounter for preprocedural laboratory examination
CPT/HCPCS: 36415 ×2; 52356; 74018; 74420; 80048; 82948; 85025; 88300; C1766; C1769; C2617; J1100; J1885; J2001; J2250; J2405; J2543; J2704; J3010

== ENCOUNTER 2019-03-26 19:15 | Inpatient (IN) | payer BC ==
[~2019-03-26] VITALS: Ht 154.9 cm; Wt 106.6 kg
[~2019-03-26 19:15] MED LIST changes: -DESFLURANE 240 ML BTL INH ONE; -DEXAMETHASONE SOD PHOS INJ 4 MG/ML VIAL ONE; -FENTANYL CITRATE/PF 100MCG/2 ML INJ ONE; -KETOROLAC TROMETHAMINE 30 MG/ML VIAL ONE; -LIDOCAINE HCL 2% LOCAL INJ 5 ML SDV VIAL INJ ONE; -MACROBID 100 M100 MG PO; -MIDAZOLAM HCL 2 MG/2 ML VIAL ONE; -NORCO 5-325 TA1 EACH PO; -NP THYROID90 MG PO; -ONDANSETRON HCL INJ 2MG/ML 2ML 2 MG/ML VIAL ONE; -OXYBUTYNIN CHLOR5 MG PO; -PIPER-TAZ 3.375 GM 50 ML ONE; -PROAIR HFA INH8.5 GM INH; -PROPOFOL IV EMULSION 10 MG/ML 20 ML VIAL ONE; -ROCURONIUM BROMIDE 10 MG/ML 5ML VIAL ONE
[2019-03-26] MEDS ORDERED: ONDANSETRON HCL INJ 2MG/ML 2ML 2 MG/ML VIAL IV STA (20:07)
[2019-03-26 20:36] LABS: BASOPHILS % 0.1 % (0.0-1.0); EOSINOPHILS # (AUTO) 0.1 (0.0-0.4); EOSINOPHILS % 1.6 % (0.0-6.0); HEMOGLOBIN 12.7 g/dL (12.0-16.0); LYMPHOCYTES % 24.5 % (18.0-39.1); MEAN CORPUSCULAR HEMOGLOBIN 27.7 pg (28-32); MEAN CORPUSCULAR VOLUME 89.5 fL (81-99); MONOCYTES # (AUTO) 0.8 (0.2-0.8); NEUTROPHILS # (AUTO) 5.2 (2.1-6.9); NEUTROPHILS % 63.6 % (38.7-80.0); PLATELET COUNT 272 x10e3/uL (140-360); RED BLOOD COUNT 4.58 x10e6/uL (3.6-5.1); RED CELL DISTRIBUTION WIDTH 15.1 % (11.7-14.4)
[2019-03-26 20:43] LABS: CLARITY,URINE CLOUDY (CLEAR); COLOR,URINE STRAW (YELLOW)
[2019-03-26 20:44] LABS: LEUKOCYTE ESTERASE ,URINE NEGATIVE (NEGATIVE)
[2019-03-26 20:45] LABS: BILIRUBIN,URINE 1+ (NEGATIVE); KETONES,URINE 1+ (NEGATIVE); NITRITE,URINE NEGATIVE (NEGATIVE); PROTEIN,URINE DIPSTICK 2+ (NEGATIVE); URINE UROBILINOGEN 0.2 mg/dL (0.2 - 1)
[2019-03-26 20:56] LABS: ALBUMIN 3.9 g/dL (3.5-5.0); ALBUMIN/GLOBULIN RATIO 1.3 (0.8-2.0); ANION GAP 16.7 mmol/L (8-16); CALCIUM 9.4 mg/dL (8.4-10.2); CREATININE, SERUM 1.19 mg/dL (0.57-1.11); POTASSIUM 3.7 mmol/L (3.5-5.1)
[2019-03-26 20:56] LABS: BACTERIA,URINE MODERATE /HPF; RBC,URINE 21-50 /HPF (0-5)
--- NOTE | 2019-03-26 21:14 | Diagnostic Imaging Report ---
EXAM: CT Abdomen and Pelvis WITHOUT contrast INDICATION: Right flank pain COMPARISON: Abdominal CT 01/27/2019 TECHNIQUE: Abdomen and pelvis were scanned utilizing a multidetector helical scanner from the lung base to the pubic symphysis without administration of IV contrast. Absence of intravenous contrast decreases sensitivity for detection of focal lesions and vascular pathology. Coronal and sagittal reformations were obtained. Routine protocol was performed. IV CONTRAST: None ORAL CONTRAST: None COMPLICATIONS: None RADIATION DOSE: Total DLP: 712 mGy*cm Estimated effective dose: (DLP x 0.015 x size factor) mSv CTDIvol has been reviewed. It is below the limits set by the Radiation Protocol Committee (RPC). Dose modulation, iterative reconstruction, and/or weight based adjustment of the mA/kV was utilized to reduce the radiation dose to as low as reasonably achievable. FINDINGS: LINES and TUBES: An internalized right nephroureteral stent, with proximal coil in the right renal inferior pole major calyx, distal coil in the urinary bladder lumen. LOWER THORAX: Unremarkable HEPATOBILIARY: No focal hepatic lesions. No biliary ductal dilation. GALLBLADDER: There are cholecystectomy clips. SPLEEN: No splenomegaly. Calcified splenic granulomata. PANCREAS: No focal masses or ductal dilatation. ADRENALS: No adrenal nodules KIDNEYS/URETERS: Urothelial thickening and periureteral fat stranding involving the entire right ureter. Nonobstructive subcentimeter calcifications/medullary pyramidal calcinosis in the inferior right renal pole. No hydronephrosis. No cystic or solid mass lesions. The distal right ureteral calculus seen on 01/27/2019, is no longer present. Postsurgical changes of left nephrectomy GI TRACT: No abnormal distention, wall thickening, or evidence of bowel obstruction. Surgical changes of antecolic Jean-en-Y gastric bypass are intact. Appendix is normal. PELVIC ORGANS/BLADDER: Unremarkable. LYMPH NODES: No lymphadenopathy. VESSELS: Scattered mild arterial vascular calcifications. PERITONEUM / RETROPERITONEUM: No free air or fluid. BONES: There are degenerative changes in the spine. SOFT TISSUES: Unremarkable. IMPRESSION: 1. An internalize right nephroureteral stent appears appropriate in position. Inflammatory changes about the right ureter could be due to ascending urinary tract infection. The distal right ureteral calculus seen on 01/27/2019, is no longer present. Nonobstructive subcentimeter calculi/medullary pyramidal calcinosis in the inferior right renal pole. 2. Intact postsurgical changes of left fracture me an antecolic Jean-en-Y gastric bypass. Signed by: Marcell Oliver DO on 03/26/2019 9:11 PM
[2019-03-26] MEDS ORDERED: MORPHINE SULFATE INJ 4 MG/ML INJ 1ML IV STA (21:18)
[2019-03-26] MEDS ORDERED: DEXTROSE 50% SYRINGE 50 ML IV PRN (21:45)
[2019-03-26] MEDS ORDERED: CEFTRIAXONE SOD 1 GM/NS 50 ML 50 ML IV SCH (21:45)
[2019-03-26] MEDS ORDERED: MORPHINE SULFATE 2 MG/ML SYR 1ML IV PRN (21:45)
[2019-03-26] MEDS: SODIUM CHLORIDE 0.9% 1000ML 1,000 ML IV SCH (22:09)
[2019-03-26] MEDS ORDERED: NP THYROID90 MG PO (22:15)
[2019-03-26] MEDS ORDERED: OXYBUTYNIN CHLOR5 MG PO (22:17)
[2019-03-27] MEDS: ONDANSETRON HCL INJ 2MG/ML 2ML 2 MG/ML VIAL IV PRN ×2 (04:51→20:50)
[2019-03-27 05:30] LABS: BASOPHILS % 0.3 % (0.0-1.0); EOSINOPHILS # (AUTO) 0.2 (0.0-0.4); EOSINOPHILS % 2.8 % (0.0-6.0); HEMATOCRIT 37.9 % (34.2-44.1); HEMOGLOBIN 11.6 g/dL (12.0-16.0); LYMPHOCYTES # (AUTO) 1.9 (1.0-3.2); LYMPHOCYTES % 26.5 % (18.0-39.1); MEAN CORPUSCULAR HEMOGLOBIN 27.9 pg (28-32); MEAN CORPUSCULAR HGB CONC 30.6 g/dL (31-35); MEAN CORPUSCULAR VOLUME 91.1 fL (81-99); MONOCYTES # (AUTO) 0.9 (0.2-0.8); MONOCYTES % 12.3 % (4.4-11.3); NEUTROPHILS # (AUTO) 4.1 (2.1-6.9); PLATELET COUNT 227 x10e3/uL (140-360); RED BLOOD COUNT 4.16 x10e6/uL (3.6-5.1); RED CELL DISTRIBUTION WIDTH 15.2 % (11.7-14.4)
[2019-03-27] MEDS ORDERED: ACETAMINOPHEN 325 MG TAB PO ONE (05:45)
[2019-03-27 05:49] LABS: ALBUMIN 3.3 g/dL (3.5-5.0); ALBUMIN/GLOBULIN RATIO 1.2 (0.8-2.0); ANION GAP 10.9 mmol/L (8-16); CALCIUM 8.8 mg/dL (8.4-10.2); CREATININE, SERUM 1.18 mg/dL (0.57-1.11); POTASSIUM 3.9 mmol/L (3.5-5.1)
[2019-03-27] MEDS ORDERED: ACETAMINOPHEN 325 MG TAB ONE (05:50)
[2019-03-27] MEDS: SODIUM CHLORIDE 0.9% 1000ML 1,000 ML IV SCH ×3 (05:53→20:33)
[2019-03-27] MEDS: MORPHINE SULFATE INJ 4 MG/ML INJ 1ML IV PRN ×2 (06:37→20:50)
[2019-03-27] MEDS: INSULIN REGULAR, HUMAN 100 UNIT/1 ML 3ML VIAL SQ SCH ×4 (08:00→21:00)
[2019-03-27 09:38] VITALS: BP 101/59
[2019-03-27] MEDS ORDERED: TRAMADOL HCL 50 MG TAB PO PRN (10:15)
--- NOTE | 2019-03-27 11:37 | History and Physical ---
CHIEF COMPLAINT: Intense right flank pain. HISTORY OF PRESENT ILLNESS: This is a 48-year-old white woman, who presents to [facility] Emergency Room with sudden onset of intense right flank pain radiating to her right lumbar, abdominal, and suprapubic area. The patient's pain actually radiates to her vaginal area. This woman has a known history of obstructive nephrolithiasis and on March 13, 2019, she underwent right ureteral stent replacement and lithotripsy. The patient just completed a7-day course of oral cefuroxime for an upper respiratory infection. The patient states that she does feel quite ill. In the emergency room, urinalysis revealed cloudy urine with 1+ ketones, 4+ blood, 2+ protein, 1+ bilirubin, 21 to 50 red cells per high-power field. No white blood cells per high-power field, but moderate bacteria. No epithelial cells were appreciated either. In the emergency room, the patient was found to have BUN and creatinine of 11 and 1.19 respectively. Potassium is 3.7. The patient's white blood cell count in the emergency room was 8200 with 63% segmenters. In the emergency room, the patient underwent a CT of the abdomen and pelvis without contrast that revealed periureteral fat stranding involving the entire right ureter with nonobstructive subcentimeter calcifications/calcinosis in the inferior right renal pole. No hydronephrosis appreciated. A right nephroureteral stent was appreciated that was placed on March 13, 2019. The patient was admitted for further evaluation and treatment. REVIEW OF SYSTEMS: GENERAL: The patient has been losing weight steadily since she underwent gastric bypass surgery in January 2019. No fever or chills, but states she does not feel well. HEENT: No headaches. No visual changes. CARDIOVASCULAR/RESPIRATORY: No chest pain. No shortness of breath. No cough. GI: Complains of nausea, but no vomiting due to the right flank pain. No constipation. No diarrhea. : Complains of intense right flank pain radiating to her right lumbar abdominal area down to her suprapubic and vaginal area. The patient also complains of slight dysuria. Denies any hematuria or incontinence. NEUROMUSCULAR: Complains of right flank pain as previously stated. She also has chronic pain in her feet from neuropathy. ALLERGIES: SULFA ANTIBIOTICS. HOME MEDICATIONS: 1. Amiodarone 200 mg b.i.d. 2. Otezla 30 mg b.i.d. 3. Diltiazem 180 mg b.i.d. 4. Xyzal 5 mg daily. 5. Lisinopril 10 mg at bedtime. 6. Oxybutynin 5 mg t.i.d. 7. Pantoprazole 40 mg daily. 8. Pioglitazone 45 mg daily. 9. Progesterone 200 mg at bedtime. 10. [place] Thyroid 90 mg daily. 11. Tramadol 50 mg every 6 hours p.r.n. pain. PAST MEDICAL HISTORY: 1. Kidney stones. 2. Extreme obesity. 3. Paroxysmal atrial flutter. 4. Hypertensive heart disease. 5. Type 2 diabetes. 6. Psoriasis. 7. Hypothyroidism. 8. Obstructive sleep apnea. 9. GERD. PAST SURGICAL HISTORY: 1. Right ureteral stent replacement and lithotripsy on March 13, 2019. 2. Laparoscopic Jean-en-Y gastric bypass on January 19, 2019. 3. Laparoscopic revision of gastrojejunostomy on January 21, 2019. 4. Initial right ureteral stent placement because of obstructive stone on January 29, 2019. 5. Right knee arthroscopy. 6. Hysterectomy. 7. Tonsillectomy. 8. Laparoscopic cholecystectomy. 9. Left nephrectomy because of complications from left-sided fungal pyelonephritis/scarring. FAMILY HISTORY: Mother has COPD and congestive heart failure as well as coronary artery disease. 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 The patient lives with her female significant other. The patient states she quit smoking tobacco heavily in 2017, but still chews nicotine gum. The patient drinks alcohol rarely. The patient denies any illicit drug use. PHYSICAL EXAMINATION: GENERAL: She is awake, alert, and fluent. She is pleasant and cooperative. She does not appear to be in any obvious distress. VITAL SIGNS: Height 5 feet 1 inch, weight is 235 pounds, BMI is 44. Blood pressure is 112/60, pulse 50, respiratory rate 16, oxygen saturation 99% on room air, and temperature 97.7. INTEGUMENT: Warm and dry. No pallor, jaundice, or diaphoresis. HEENT: Anicteric sclerae with moist mucous membranes. NECK: Supple. CARDIOVASCULAR: Distant heart sounds. Bradycardic rate. Regular rhythm. LUNGS: No rales. No rhonchi. ABDOMEN: Obese and benign. The patient does have tenderness when palpating the right flank area. She also has tenderness on palpating the right lumbar abdominal area as well as a suprapubic area. EXTREMITIES: No edema in the legs. NEUROLOGIC: Intact. DIAGNOSES: 1. Right renal colic. 2. Right pyelonephritis/urinary tract infection. 3. History of left nephrectomy. 4. Right nephroureteral stent replacement on March 13, 2019, with lithotripsy. 5. Nonobstructive right-sided kidney stones. 6. Extreme obesity, BMI 44. PLAN: 1. Intravenous fluids. 2. Intravenous antibiotics. 3. Follow renal function and electrolytes. 4. Follow urine culture. 5. Consult Urology. I spent 50 minutes in the care of this patient. MD AMAURI Ferguson/MACHO /[id number] MTDD
[2019-03-27] MEDS: OXYBUTYNIN CHLORIDE 5 MG TAB PO SCH ×2 (14:15→20:32)
[2019-03-27] MEDS: CEFEPIME 1GM/NS 0.9% 50 ML 50 ML IV SCH (14:15)
[2019-03-27 15:17] VITALS: BP 101/59
[2019-03-27] MEDS: APREMILAST 30 MG PO SCH (17:00)
[2019-03-27] MEDS ORDERED: DILTIAZEM HCL 180 MG CAP ER PO SCH (17:00)
[2019-03-27] MEDS ORDERED: AMIODARONE HCL 200 MG TAB PO SCH (17:00)
[2019-03-27 20:00] VITALS: BP 121/60
[2019-03-27] MEDS: DILTIAZEM HCL 180 MG CAP ER PO SCH (20:32)
[2019-03-27] MEDS: AMIODARONE HCL 200 MG TAB PO SCH (20:32)
[2019-03-27 21:00] VITALS: BP 134/78
[2019-03-27] MEDS ORDERED: (Progesterone,Micronized (Progesterone) 200 MG) PO SCH (21:00)
[2019-03-27] MEDS ORDERED: LISINOPRIL 10 MG TAB PO SCH (21:00)
[2019-03-28] VITALS: BP 124/58
[2019-03-28] MEDS: CEFEPIME 1GM/NS 0.9% 50 ML 50 ML IV SCH
[2019-03-28 04:00] VITALS: BP 118/60
[2019-03-28] MEDS: SODIUM CHLORIDE 0.9% 1000ML 1,000 ML IV SCH (05:34)
[2019-03-28 05:54] LABS: ALBUMIN/GLOBULIN RATIO 1.2 (0.8-2.0); ANION GAP 14.6 mmol/L (8-16); CALCIUM 8.5 mg/dL (8.4-10.2); CREATININE, SERUM 1.06 mg/dL (0.57-1.11); POTASSIUM 4.6 mmol/L (3.5-5.1)
[2019-03-28 05:55] LABS: BASOPHILS % 0.3 % (0.0-1.0); EOSINOPHILS # (AUTO) 0.2 (0.0-0.4); EOSINOPHILS % 3.5 % (0.0-6.0); HEMATOCRIT 38.1 % (34.2-44.1); HEMOGLOBIN 11.5 g/dL (12.0-16.0); LYMPHOCYTES # (AUTO) 1.9 (1.0-3.2); LYMPHOCYTES % 28.6 % (18.0-39.1); MEAN CORPUSCULAR HEMOGLOBIN 28.3 pg (28-32); MEAN CORPUSCULAR HGB CONC 30.2 g/dL (31-35); MEAN CORPUSCULAR VOLUME 93.6 fL (81-99); MONOCYTES # (AUTO) 0.7 (0.2-0.8); MONOCYTES % 10.4 % (4.4-11.3); NEUTROPHILS # (AUTO) 3.7 (2.1-6.9); PLATELET COUNT 207 x10e3/uL (140-360); RED BLOOD COUNT 4.07 x10e6/uL (3.6-5.1); RED CELL DISTRIBUTION WIDTH 15.3 % (11.7-14.4)
[2019-03-28] MEDS ORDERED: THYROID 60 MG TAB PO SCH (06:00)
[2019-03-28] MEDS ORDERED: PANTOPRAZOLE SOD 40 MG TABEC PO SCH (07:30)
[2019-03-28 08:14] VITALS: BP 110/52
[2019-03-28 08:30] VITALS: BP 110/52
[2019-03-28] MEDS: DILTIAZEM HCL 180 MG CAP ER PO SCH (08:39)
[2019-03-28] MEDS: AMIODARONE HCL 200 MG TAB PO SCH (08:40)
[2019-03-28] MEDS: APREMILAST 30 MG PO SCH (08:41)
[2019-03-28] MEDS: OXYBUTYNIN CHLORIDE 5 MG TAB PO SCH (08:41)
[2019-03-28] MEDS ORDERED: NON-FORMULARY MEDICATION (Thyroid,Pork (Np Thyroid) 90 MG) PO SCH (09:00)
[2019-03-28] MEDS ORDERED: LORATADINE 10 MG TAB PO SCH (09:00)
[2019-03-28] MEDS ORDERED: PIOGLITAZONE HCL 15 MG TAB PO SCH (09:00)
[2019-03-28] MEDS ORDERED: NORCO 5-325 TA1 EACH PO (10:24)
[2019-03-28] MEDS ORDERED: PROAIR HFA INH8.5 GM INH (10:25)
[2019-03-28] MEDS ORDERED: MACROBID 100 M100 MG PO (10:26)
--- NOTE | 2019-03-28 10:33 | Discharge Summary ---
ADMIT DIAGNOSES: 1. Right-sided pyelonephritis/urinary tract infection. 2. Recent right ureteral stent replacement. 3. Acute renal insufficiency secondary to acute tubular necrosis. 4. Nonobstructive right-sided kidney stones. 5. Extreme obesity, BMI 44. DISCHARGE DIAGNOSES: 1. Right-sided pyelonephritis/urinary tract infection, resolving. 2. Acute renal insufficiency secondary to acute tubular necrosis, resolved. 3. Nonobstructive right-sided kidney stones. 4. Extreme obesity, BMI 44. 5. Recent right ureteral stent replacement with lithotripsy. HOSPITAL COURSE: This is a 48-year-old white woman, who has a known history of recurrent kidney stones, extreme obesity, and type 2 diabetes mellitus. The patient has history of left nephrectomy due to complications from kidney stones and infections. The patient was admitted to this hospital with diagnosis of right renal colic secondary to right pyelonephritis/urinary tract infection. Urine culture, however, did not reveal any bacterial growth during this hospitalization. The patient improved clinically with intravenous fluids and intravenous antibiotics, namely cefepime. The patient's BUN and creatinine on admission were 11 and 1.19 respectively. On day of discharge, BUN and creatinine were 8 and 1.06 respectively. On admission, the patient's white blood cell count was 8200 with 63% segmented neutrophils. On discharge, her white blood cell count was 6500 with 57% segmented neutrophils. The urinalysis on admission revealed cloudy urine with 21-50 red cells per high-power field and moderate bacteria. The patient was seen by her urologist during this hospitalization namely Dr. Clint Jimenez. The patient's brief hospitalization was unremarkable. CONDITION ON DISCHARGE: Stable. DISCHARGE MEDICATIONS: 1. Macrobid 1 p.o. b.i.d. for 10 days. 2. [place] 5/325 one every 4 hours p.r.n. pain, 20 prescribed, no refills. 3. ProAir inhaler 2 puffs q.i.d. 4. Amiodarone 200 mg b.i.d. 5. Otezla 30 mg b.i.d. 6. Diltiazem 180 mg b.i.d. 7. Xyzal 5 mg daily. 8. Lisinopril 10 mg at bedtime. 9. Oxybutynin 5 mg t.i.d. 10. Pantoprazole 40 mg daily. 11. Pioglitazone 45 mg daily. 12. Progesterone 200 mg at bedtime. 13. [place] Thyroid 90 mg daily. 14. Tramadol 50 mg every 6 hours p.r.n. pain. FOLLOWUP INSTRUCTIONS: The patient was instructed to follow up with her primary care physician namely myself, Dr. Fabian Bishop within [address] Jimenez, her urologist also within 2 weeks. MD LIANNE FergusonO/EDELL /[id number] cc: Clint Jimenez MD
== END 2019-03-28 10:53 | disposition home or self-care (01) | DRG 698 ==
LOC: ER 19:15 → ERHOLD 21:37 → IMCU 03-27 08:28 → OBSVTOIN 03-27 10:08 → MED/SURG 03-27 18:47
PROVIDERS: ADMIT Internal Medicine; ATTEND Internal Medicine
DX: T83.593A Infection and inflammatory reaction due to other urinary stents, initial encounter (principal); N17.0 Acute kidney failure with tubular necrosis; N10 Acute pyelonephritis; Z68.41 Body mass index [BMI] 40.0-44.9, adult; N20.0 Calculus of kidney; I48.91 Unspecified atrial fibrillation; E66.01 Morbid (severe) obesity due to excess calories; Z87.442 Personal history of urinary calculi; Z98.84 Bariatric surgery status; Z90.5 Acquired absence of kidney; Z83.3 Family history of diabetes mellitus; Z82.49 Family history of ischemic heart disease and other diseases of the circulatory system; Z88.2 Allergy status to sulfonamides; Z96.0 Presence of urogenital implants; Z88.0 Allergy status to penicillin; E11.22 Type 2 diabetes mellitus with diabetic chronic kidney disease; I12.9 Hypertensive chronic kidney disease with stage 1 through stage 4 chronic kidney disease, or unspecified chronic kidney disease; N18.9 Chronic kidney disease, unspecified
CPT/HCPCS: 36415; 74176; 80053; 81001; 82948; 85025; 87086; 99284; G0378; J0692; J0696; J2270; J2405; J7030

== ENCOUNTER 2019-04-01 15:33 | Inpatient (IN) | payer BC ==
[~2019-04-01] VITALS: Ht 154.9 cm; Wt 104.3 kg
[~2019-04-01 15:33] MED LIST changes: +MACROBID 100 M100 MG PO; +NORCO 5-325 TA1 EACH PO; +NP THYROID90 MG PO; +OXYBUTYNIN CHLOR5 MG PO; +PROAIR HFA INH8.5 GM INH
[2019-04-01] MEDS ORDERED: ONDANSETRON HCL INJ 2MG/ML 2ML 2 MG/ML VIAL IV STA (15:56)
[2019-04-01] MEDS ORDERED: MORPHINE SULFATE INJ 4 MG/ML INJ 1ML IV ONE (16:00)
[2019-04-01 16:01] LABS: BASOPHILS % 0.3 % (0.0-1.0); EOSINOPHILS # (AUTO) 0.1 (0.0-0.4); HEMATOCRIT 37.8 % (34.2-44.1); HEMOGLOBIN 11.9 g/dL (12.0-16.0); LYMPHOCYTES # (AUTO) 1.1 (1.0-3.2); LYMPHOCYTES % 19.5 % (18.0-39.1); MEAN CORPUSCULAR HEMOGLOBIN 28.1 pg (28-32); MEAN CORPUSCULAR HGB CONC 31.5 g/dL (31-35); MEAN CORPUSCULAR VOLUME 89.4 fL (81-99); MONOCYTES # (AUTO) 0.6 (0.2-0.8); MONOCYTES % 10.2 % (4.4-11.3); NEUTROPHILS % 67.8 % (38.7-80.0); PLATELET COUNT 231 x10e3/uL (140-360); RED BLOOD COUNT 4.23 x10e6/uL (3.6-5.1)
[2019-04-01] MEDS ORDERED: SODIUM CHLORIDE 0.9% 1000ML 1,000 ML ONE (16:05)
[2019-04-01] MEDS ORDERED: CEFTRIAXONE SOD 1 GM VIAL ONE (16:05)
[2019-04-01] MEDS ORDERED: ONDANSETRON HCL INJ 2MG/ML 2ML 2 MG/ML VIAL ONE (16:06)
[2019-04-01] MEDS ORDERED: MORPHINE SULFATE INJ 4 MG/ML INJ 1ML ONE (16:07)
[2019-04-01 16:17] LABS: ANION GAP 11.5 mmol/L (8-16); CLARITY,URINE CLOUDY (CLEAR); COLOR,URINE RED (YELLOW); CREATININE, SERUM 1.02 mg/dL (0.57-1.11); POTASSIUM 3.5 mmol/L (3.5-5.1)
[2019-04-01 16:18] LABS: BILIRUBIN,URINE NEGATIVE (NEGATIVE); KETONES,URINE NEGATIVE (NEGATIVE); LEUKOCYTE ESTERASE ,URINE TRACE (NEGATIVE); NITRITE,URINE NEGATIVE (NEGATIVE); PROTEIN,URINE DIPSTICK 2+ (NEGATIVE); URINE UROBILINOGEN 0.2 mg/dL (0.2 - 1)
--- NOTE | 2019-04-01 16:26 | Diagnostic Imaging Report ---
EXAM: ABDOMEN-1VIEW (KUB) DATE: 04/01/2019 3:53 PM INDICATION: Flank pain COMPARISON: CT abdomen/pelvis without contrast from 03/26/2019 FINDINGS/IMPRESSION: Right-sided ureteral stent identified with proximal end projecting over the right renal pelvis and distal pigtail projecting over the expected location of the urinary bladder. Bowel gas pattern appears nonobstructive. No pathologic dilated loops of bowel identified. There are subcentimeter calcifications noted projecting over the inferior right renal shadow, better evaluated on the recent prior CT examination. No new abnormal intra-abdominal calcification is appreciated. No acute osseous abnormality is identified. Signed by: Dr. Selwyn Wilson MD on 04/01/2019 4:24 PM
[2019-04-01] MEDS ORDERED: SODIUM CHLORIDE 0.9% 1000ML 1,000 ML IV ONE (16:30)
[2019-04-01 16:34] LABS: BACTERIA,URINE MODERATE /HPF; EPITHELIAL CELLS,URINE MODERATE /LPF; RBC,URINE 21-50 /HPF (0-5)
[2019-04-01] MEDS ORDERED: FLUCONAZOLE 100 MG/NS 50 ML 50 ML IV STA (16:50)
[2019-04-01] MEDS ORDERED: DEXTROSE 50% SYRINGE 50 ML IV PRN (17:00)
[2019-04-01] MEDS ORDERED: MORPHINE SULFATE 2 MG/ML SYR 1ML IV PRN (17:00)
[2019-04-01] MEDS: PIPERACILLIN/TAZO 2.25 GM 50 ML IV SCH (18:05)
[2019-04-01 20:00] VITALS: BP 151/67
[2019-04-01] MEDS: INSULIN REGULAR, HUMAN 100 UNIT/1 ML 3ML VIAL SQ SCH (20:44)
[2019-04-01 20:45] VITALS: BP 151/67
--- NOTE | 2019-04-01 20:45 | NUR ---
Patient received via stretcher from ER accompanied by girlfriend. MYRNAO x 4. Patient had complaints of right flank pain (6/10). Respirations even and non-labored. Admission history obtained. Initial physical assessment performed. Patient oriented to room, call light and plan of care. Fall precautions implemented. Patient instructed to call for assistance when needed. Call light within reach.
[2019-04-01] MEDS: MORPHINE SULFATE INJ 4 MG/ML INJ 1ML IV PRN (20:53)
[2019-04-01] MEDS: ONDANSETRON HCL INJ 2MG/ML 2ML 2 MG/ML VIAL IV PRN (20:53)
[2019-04-01] MEDS ORDERED: SODIUM CHLORIDE 0.9% 250ML 250 ML ONE (20:53)
[2019-04-01 21:52] VITALS: BP 151/67
[2019-04-02] VITALS (8 sets, daily range): BP systolic 138–162; BP diastolic 65–79
[2019-04-02] MEDS: PIPERACILLIN/TAZO 2.25 GM 50 ML IV SCH ×3 (01:07→16:41)
[2019-04-02 05:30] LABS: BASOPHILS % 0.2 % (0.0-1.0); EOSINOPHILS # (AUTO) 0.2 (0.0-0.4); EOSINOPHILS % 3.4 % (0.0-6.0); HEMATOCRIT 35.9 % (34.2-44.1); HEMOGLOBIN 10.9 g/dL (12.0-16.0); LYMPHOCYTES # (AUTO) 1.5 (1.0-3.2); LYMPHOCYTES % 27.2 % (18.0-39.1); MEAN CORPUSCULAR HEMOGLOBIN 27.6 pg (28-32); MEAN CORPUSCULAR HGB CONC 30.4 g/dL (31-35); MEAN CORPUSCULAR VOLUME 90.9 fL (81-99); MONOCYTES # (AUTO) 0.7 (0.2-0.8); NEUTROPHILS # (AUTO) 3.2 (2.1-6.9); PLATELET COUNT 205 x10e3/uL (140-360); RED BLOOD COUNT 3.95 x10e6/uL (3.6-5.1); RED CELL DISTRIBUTION WIDTH 15.1 % (11.7-14.4)
[2019-04-02 05:55] LABS: ALBUMIN 3.2 g/dL (3.5-5.0); ALBUMIN/GLOBULIN RATIO 1.2 (0.8-2.0); CALCIUM 8.6 mg/dL (8.4-10.2); CREATININE, SERUM 1.09 mg/dL (0.57-1.11)
--- NOTE | 2019-04-02 06:20 | NUR ---
Dr. Jimenez notified of "Routine Consult".
--- NOTE | 2019-04-02 07:00 | NUR ---
Walking rounds done. Patient resting comfortably. BSSR given to oncoming nurse.
--- NOTE | 2019-04-02 07:00 | NUR ---
bedside report done. pt is alert sitting in the bedside chair, no s/s of distress. instructed pt to use call light to call RN for help. SO is sleeping in the bed
[2019-04-02] MEDS: INSULIN REGULAR, HUMAN 100 UNIT/1 ML 3ML VIAL SQ SCH ×4 (07:30→21:00)
[2019-04-02] MEDS: MORPHINE SULFATE INJ 4 MG/ML INJ 1ML IV PRN ×2 (07:52→15:47)
[2019-04-02] MEDS: ONDANSETRON HCL INJ 2MG/ML 2ML 2 MG/ML VIAL IV PRN ×2 (07:52→15:47)
--- NOTE | 2019-04-02 09:50 | NUR ---
Dr. Bishop at the bedside, RN rounded with questions/concerns addressed. Dr. Bishop consulted with Dr. Jimenez over the phone about plan of care
[2019-04-02] MEDS ORDERED: TRAMADOL HCL 50 MG TAB PO PRN (10:15)
[2019-04-02] MEDS ORDERED: ALBUTEROL SULFATE HFA 8GM INHALATION AEROSOL INH PRN (10:15)
--- NOTE | 2019-04-02 11:04 | History and Physical ---
CHIEF COMPLAINT: "I feel my bladder is being ripped out of my body." HISTORY OF PRESENT ILLNESS: This is a 48-year-old white woman, who unfortunately has a history of recurrent obstructive nephrolithiasis. The patient was just discharged home from [facility] on March 28, 2019, after 2- day stay because of urinary tract infection. The patient states that two days prior to this admission, she experienced right flank pain as well as extreme sharp pain in the suprapubic area. She also complains of subjective fever as well as nausea. The patient had any vomiting or diarrhea. The patient states she does not feel well. The patient actually has an indwelling right ureteral stent, that was placed on March 13, 2019. In fact, the patient was actually scheduled to have cystoscopy and likely right ureteral stent removal this Wednesday April 03, 2019, by her urologist, namely Dr. Clint Jimenez. In the emergency room on this visit, the patient was found to have white blood cell count of 5800 with 67% segmenters. The patient's BUN and creatinine were 9 and 1.02 respectively. The patient's potassium is 3.5. Urinalysis in the emergency room, revealed cloudy red urine, 3+ blood, 21 to 50 red cells per high-power field and 11 to 20 white blood cells per high-power field. Urinalysis also revealed moderate bacteria. The patient underwent abdominal x-ray in the emergency room, that revealed a right-sided ureteral stent as well as subcentimeter calcifications over the inferior right renal shadow. No new abdominal or intraabdominal calcifications were appreciated. REVIEW OF SYSTEMS: GENERAL: The patient has gradually been losing weight since she underwent bariatric surgery in January 2019. She had subjective fever past couple of days. No chills. HEENT: No headaches. No vision changes. CARDIOVASCULAR/RESPIRATORY: No chest pain or short of breath. No cough. No palpitations or lightheadedness. GI: Complains of nausea, but no vomiting. No diarrhea. She does have constipation issues. : Complains of intense pain in her suprapubic area as well as right flank pain. She also complains of dysuria. NEUROMUSCULAR: Denies any limb weakness or numbness. ALLERGIES: SULFA ANTIBIOTICS. PAST MEDICAL HISTORY: 1. Nonobstructive right-sided kidney stones. 2. History of obstructive right-sided kidney stones. 3. Recent right ureteral stent placement with lithotripsy on March 13, 2019. 4. Extreme obesity, BMI 43. 5. Type 2 diabetes mellitus with neuropathy. 6. Psoriasis. 7. Hypertensive heart disease. 8. GERD. 9. Hypothyroidism. 10. Obstructive sleep apnea. 11. Paroxysmal atrial flutter. PAST SURGICAL HISTORY: 1. Right ureteral stent replacement, lithotripsy on March 13, 2019. 2. Laparoscopic Jean-en-Y gastric bypass on January 19, 2019. 3. Laparoscopic revision of gastrojejunostomy on January 21, 2019. 4. Initial right ureteral stent placement because of obstructive stone on January 29, 2019. 5. Right knee arthroscopy. 6. Hysterectomy. 7. Tonsillectomy. 8. Laparoscopic cholecystectomy. 9. Left nephrectomy because of complications from left-sided fungal pyelonephritis/scarring. FAMILY HISTORY: Mother has COPD and congestive heart failure as well as coronary artery disease. 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 The patient lives with her female significant other. The patient states she quit smoking tobacco heavily in 2017, but she still chews nicotine gum. The patient drinks alcohol rarely. The patient denies any illicit drug use. HOME MEDICATIONS: 1. Macrobid one p.o. b.i.d. for total 10 days. 2. [place] 5/325 one every 4 hours p.r.n. pain, 20 prescribed, no refills. 3. ProAir inhaler two puffs q.i.d. 4. Amiodarone 2 mg b.i.d. 5. Otezla 30 mg b.i.d. 6. Diltiazem 180 mg b.i.d. 7. Xyzal 5 mg daily. 8. Lisinopril 10 mg at bedtime. 9. Oxybutynin 5 mg t.i.d. 10. Pantoprazole 40 mg daily. 11. Pioglitazone 45 mg daily. 12. Progesterone 200 mg at bedtime. 13. [place] thyroid 90 mg daily. 14. Tramadol 50 mg every 6 hours p.r.n. pain. PHYSICAL EXAMINATION: GENERAL: Awake, alert, and fluent. She does appear to be uncomfortable. VITAL SIGNS: Height 5 feet 1 inch, weight is 230 pounds. BMI 43. Blood pressure currently is 142/70, pulse is 48, respiratory rate is 18, oxygen saturation 98%, and temperature 96.2. INTEGUMENT: Skin is warm and dry. No pallor, jaundice, or diaphoresis. HEENT: Anicteric sclerae with moist mucous membranes. NECK: Supple. CARDIOVASCULAR: Distant heart sounds. Bradycardic rate and rhythm. LUNGS: No rales no rhonchi. No wheezes. ABDOMEN: Obese. The laparoscopic incisions from her bariatric surgery in January 2019, are completely healed. The patient does have tenderness on palpating the suprapubic area. SPINE/TORSO: The patient has slight tenderness on palpating the right costovertebral angle area. EXTREMITIES: No edema or deformity. NEUROLOGIC: Intact. DIAGNOSES: 1. Urinary tract infection/right sided pyelonephritis. 2. Recent right ureteral stent placement with lithotripsy (March 13, 2019). 3. Right-sided nonobstructive nephrolithiasis. 4. Extreme obesity, BMI 43. 5. Type 2 diabetes mellitus. PLAN: 1. Intravenous fluids. 2. Monitor renal function, electrolytes. 3. Follow urine culture. 4. Intravenous antibiotics. 5. Continue intravenous analgesics and antiemetics. 6. Consult Urology. 7. Tentative cystoscopy with likely right ureteral stent removal on April 03, 2019. I spent an hour in the care of this patient. MD AMAURI Ferguson/MACHO /[id number] SARAH
[2019-04-02] MEDS: OXYBUTYNIN CHLORIDE 5 MG TAB PO SCH ×2 (15:42→21:47)
[2019-04-02] MEDS: SODIUM CHLORIDE 0.9% 1000ML 1,000 ML IV SCH ×2 (15:42→21:48)
[2019-04-02] MEDS: NON-FORMULARY MEDICATION (Apremilast (Otezla) 30 MG) PO SCH (17:00)
--- NOTE | 2019-04-02 19:28 | NUR ---
Patient received sitting in recliner chair. AAO x 4. IVF infusing at 100 cc/hr. No acute distress noted. Call light within reach.
--- NOTE | 2019-04-02 20:00 | NUR ---
Dr. Ru Jimenez paged for orders of upcoming surgical procedure. New orders received.
[2019-04-02] MEDS: NON-FORMULARY MEDICATION (Progesterone,Micronized (Progesterone) 200 MG) PO SCH (21:00)
[2019-04-02] MEDS: LISINOPRIL 10 MG TAB PO SCH (21:47)
[2019-04-03] VITALS (8 sets, daily range): BP systolic 105–170; BP diastolic 51–86
[2019-04-03] MEDS: PIPERACILLIN/TAZO 2.25 GM 50 ML IV SCH ×3 (01:08→16:56)
--- NOTE | 2019-04-03 02:26 | NUR ---
Patient informing of upcoming surgical procedure. Patient verbalized understanding and signed "Disclosure and Consent" form.
[2019-04-03] MEDS: MORPHINE SULFATE INJ 4 MG/ML INJ 1ML IV PRN ×4 (02:42→21:00)
[2019-04-03] MEDS: ONDANSETRON HCL INJ 2MG/ML 2ML 2 MG/ML VIAL IV PRN ×4 (02:43→21:00)
--- NOTE | 2019-04-03 07:00 | NUR ---
Patient resting comfortably. Shift report given to oncoming nurse.
[2019-04-03 07:15] LABS: BASOPHILS % 0.4 % (0.0-1.0); EOSINOPHILS # (AUTO) 0.2 (0.0-0.4); EOSINOPHILS % 4.4 % (0.0-6.0); HEMATOCRIT 34.2 % (34.2-44.1); HEMOGLOBIN 10.4 g/dL (12.0-16.0); LYMPHOCYTES # (AUTO) 1.5 (1.0-3.2); LYMPHOCYTES % 34.2 % (18.0-39.1); MEAN CORPUSCULAR HEMOGLOBIN 27.7 pg (28-32); MEAN CORPUSCULAR HGB CONC 30.4 g/dL (31-35); MONOCYTES # (AUTO) 0.5 (0.2-0.8); MONOCYTES % 11.6 % (4.4-11.3); NEUTROPHILS # (AUTO) 2.2 (2.1-6.9); NEUTROPHILS % 49.2 % (38.7-80.0); PLATELET COUNT 191 x10e3/uL (140-360); RED BLOOD COUNT 3.76 x10e6/uL (3.6-5.1)
[2019-04-03] MEDS: INSULIN REGULAR, HUMAN 100 UNIT/1 ML 3ML VIAL SQ SCH ×4 (07:30→21:00)
[2019-04-03 07:39] LABS: ALBUMIN 2.9 g/dL (3.5-5.0); ALBUMIN/GLOBULIN RATIO 1.2 (0.8-2.0); ANION GAP 8.8 mmol/L (8-16); CALCIUM 8.1 mg/dL (8.4-10.2); CREATININE, SERUM 1.05 mg/dL (0.57-1.11); POTASSIUM 3.8 mmol/L (3.5-5.1)
[2019-04-03] MEDS ORDERED: PIOGLITAZONE HCL 45 MG TAB PO SCH (09:00)
[2019-04-03] MEDS: NON-FORMULARY MEDICATION (Apremilast (Otezla) 30 MG) PO SCH ×2 (09:00→16:56)
[2019-04-03] MEDS: NON-FORMULARY MEDICATION (Thyroid,Pork (Np Thyroid) 90 MG) PO SCH (09:00)
--- NOTE | 2019-04-03 09:35 | Progress Note ---
DATE: 04/03/2019 SUBJECTIVE: This is a 48-year-old white woman who was initially admitted to [facility] with a diagnosis of urinary tract infection/right-sided pyelonephritis. The patient recently underwent right ureteral stent placement with lithotripsy on March 13, 2019. The patient also has right-sided nonobstructive nephrolithiasis. The patient states she still has pain in her suprapubic area. The patient states she has improved slightly. The patient is scheduled for tentative cystoscopy today with possible stent removal. The patient denies any nausea and vomiting. She denies fever and chills. The patient's preliminary urine culture states no growth at this time. Complete blood count and comprehensive metabolic profile today is unremarkable. REVIEW OF SYSTEMS: As per HPI. OBJECTIVE: GENERAL: She is awake, alert, and fully oriented. She is pleasant and cooperative with the exam. VITAL SIGNS: Blood pressure is 130/74, pulse 64, respiratory rate 18, temperature is 97.6, and oxygen saturation 98% on room air. Height 5 feet 1 inch, weight 230 pounds, and BMI 43. INTEGUMENT: Skin is warm and dry. No pallor, jaundice, or diaphoresis. HEENT: Anterior sclerae. Moist mucous membranes. NECK: Supple. CARDIOVASCULAR: Bradycardic rate and rhythm. LUNGS: No rales. No rhonchi. ABDOMEN: Obese. She has tenderness in the right flank and suprapubic area with palpation. Normal bowel sounds. EXTREMITIES: No edema or deformity. NEUROLOGIC: Intact. ASSESSMENT: 1. Urinary tract infection/right-sided pyelonephritis, resolving. 2. Recent right ureteral stent placement, lithotripsy on March 13, 2019. 3. Nonobstructive right-sided nephrolithiasis. 4. Extreme obesity, BMI of 43. 5. Type 2 diabetes mellitus. PLAN: 1. Tentative cystoscopy with likely right ureteral stent removal today. 2. Continue intravenous fluids. 3. Continue intravenous antibiotics for pain control. 4. Antiemetics. I spent 30 minutes in the care of this patient. MD AMAURI Ferguson/MACHO /[id number] MTDD
[2019-04-03] MEDS ORDERED: LIDOCAINE HCL 2% LOCAL INJ 5 ML SDV VIAL INJ ONE (13:31)
[2019-04-03] MEDS ORDERED: ONDANSETRON HCL INJ 2MG/ML 2ML 2 MG/ML VIAL ONE (13:31)
[2019-04-03] MEDS ORDERED: DEXAMETHASONE SOD PHOS INJ 4 MG/ML VIAL ONE (13:31)
[2019-04-03] MEDS ORDERED: PROPOFOL IV EMULSION 10 MG/ML 20 ML VIAL ONE (13:31)
[2019-04-03] MEDS ORDERED: LIDOCAINE HCL 2% JELLY 5 ML TUBE ONE (13:31)
[2019-04-03] MEDS ORDERED: GLYCOPYRROLATE INJ 0.2 MG/ML VIAL ONE (13:31)
[2019-04-03] MEDS ORDERED: SEVOFLURANE INHAL SOLN 250 ML PEN BTL ONE (13:31)
--- NOTE | 2019-04-03 13:53 | NUR ---
Taken for procedure. No s/s of acute distress noted.
[2019-04-03] MEDS ORDERED: B&O 60MG R/S 60 MG SUPP PR ONE (13:55)
[2019-04-03] MEDS ORDERED: IOPAMIDOL 300MG/ML 50ML INFUS..BTL IV ONE (13:55)
--- NOTE | 2019-04-03 16:20 | NUR ---
Back from procedure. No s/s of acute distress noted
[2019-04-03] MEDS: PIOGLITAZONE HCL 15 MG TAB PO SCH (16:54)
[2019-04-03] MEDS: OXYBUTYNIN CHLORIDE 5 MG TAB PO SCH ×3 (16:55→20:58)
[2019-04-03] MEDS: AMIODARONE HCL 200 MG TAB PO SCH (16:55)
[2019-04-03] MEDS: PANTOPRAZOLE SOD 40 MG TABEC PO SCH (16:55)
[2019-04-03] MEDS: PHENAZOPYRIDINE HCL 100 MG TAB PO SCH (16:56)
[2019-04-03] MEDS ORDERED: MIDAZOLAM HCL 2 MG/2 ML VIAL ONE (18:59)
[2019-04-03] MEDS ORDERED: FENTANYL CITRATE/PF 100MCG/2 ML INJ ONE (18:59)
--- NOTE | 2019-04-03 19:15 | NUR ---
Report given to oncoming nurse of patient's status. Resting in bed. No s/s of acute distress noted. Side rails upx2, call light within reach.
--- NOTE | 2019-04-03 19:26 | NUR ---
Patient received sitting up in bed. AAO x 4. Patient had no complaints of pain. Respirations even and non-labored. Safety measures in place. Patient instructed to call for assistance when needed. Call light within reach.
[2019-04-03] MEDS: LISINOPRIL 10 MG TAB PO SCH (20:55)
[2019-04-03] MEDS: SODIUM CHLORIDE 0.9% 1000ML 1,000 ML IV SCH (20:58)
[2019-04-03] MEDS: NON-FORMULARY MEDICATION (Progesterone,Micronized (Progesterone) 200 MG) PO SCH (21:00)
[2019-04-04] VITALS (7 sets, daily range): BP systolic 119–163; BP diastolic 59–70
[2019-04-04] MEDS: PIPERACILLIN/TAZO 2.25 GM 50 ML IV SCH ×2 (01:22→08:50)
[2019-04-04] MEDS: SODIUM CHLORIDE 0.9% 1000ML 1,000 ML IV SCH (02:15)
[2019-04-04 05:33] LABS: HEMATOCRIT 36.8 % (34.2-44.1); HEMOGLOBIN 11.2 g/dL (12.0-16.0); LYMPHOCYTES # (AUTO) 0.8 (1.0-3.2); LYMPHOCYTES % 11.7 % (18.0-39.1); MEAN CORPUSCULAR HEMOGLOBIN 27.9 pg (28-32); MEAN CORPUSCULAR HGB CONC 30.4 g/dL (31-35); MEAN CORPUSCULAR VOLUME 91.5 fL (81-99); MONOCYTES # (AUTO) 0.2 (0.2-0.8); MONOCYTES % 3.3 % (4.4-11.3); NEUTROPHILS # (AUTO) 6.1 (2.1-6.9); NEUTROPHILS % 84.7 % (38.7-80.0); PLATELET COUNT 202 x10e3/uL (140-360); RED BLOOD COUNT 4.02 x10e6/uL (3.6-5.1); RED CELL DISTRIBUTION WIDTH 14.6 % (11.7-14.4)
[2019-04-04 05:53] LABS: ANION GAP 12.2 mmol/L (8-16); CALCIUM 8.7 mg/dL (8.4-10.2); CREATININE, SERUM 1.67 mg/dL (0.57-1.11); POTASSIUM 4.2 mmol/L (3.5-5.1)
--- NOTE | 2019-04-04 06:50 | NUR ---
Walking rounds done. Patient resting comfortably. BSSR given to oncoming nurse.
[2019-04-04] MEDS: INSULIN REGULAR, HUMAN 100 UNIT/1 ML 3ML VIAL SQ SCH (07:30)
[2019-04-04] MEDS: OXYBUTYNIN CHLORIDE 5 MG TAB PO SCH (08:52)
[2019-04-04] MEDS: PANTOPRAZOLE SOD 40 MG TABEC PO SCH (08:52)
[2019-04-04] MEDS: PHENAZOPYRIDINE HCL 100 MG TAB PO SCH (08:52)
[2019-04-04] MEDS: AMIODARONE HCL 200 MG TAB PO SCH (08:52)
[2019-04-04] MEDS: PIOGLITAZONE HCL 15 MG TAB PO SCH (08:52)
[2019-04-04] MEDS: NON-FORMULARY MEDICATION (Apremilast (Otezla) 30 MG) PO SCH (09:01)
[2019-04-04] MEDS: NON-FORMULARY MEDICATION (Thyroid,Pork (Np Thyroid) 90 MG) PO SCH (09:02)
--- NOTE | 2019-04-06 09:09 | NUR ---
Dictated DC summary: [id number]
--- NOTE | 2019-04-06 09:39 | Discharge Summary ---
ADMITTING DIAGNOSES: 1. Urinary tract infection/right-sided pyelonephritis. 2. Recent right ureteral stent placement with lithotripsy (March 13, 2019). 3. Right-sided nonobstructive nephrolithiasis. 4. Extreme obesity, BMI of 43. 5. Type 2 diabetes mellitus. DISCHARGE DIAGNOSES: 1. Status post cystoscopy with right ureteral stent removal. 2. Right renal colic, resolving. 3. Nonobstructive right-sided nephrolithiasis. 4. Type 2 diabetes mellitus. 5. Extreme obesity, BMI of 43. HOSPITAL COURSE: This is a 48-year-old white woman, who was initially admitted to [facility] with diagnosis of right-sided renal colic that was thought to be secondary to her right-sided indwelling ureteral stent as well as urinary tract infection. During this hospitalization, she did receive intravenous Zosyn and fluids. The patient was seen by her urologist, namely Dr. Clint Jimenez. During this hospital stay, patient underwent cystoscopy with right ureteral stent retrieval or removal. The patient tolerated the surgery quite well. Urine culture during this hospitalization did not reveal any growth, so the patient was not sent home with any antibiotics. The patient's condition on discharge is stable. DISCHARGE MEDICATIONS: 1. [place] 5/325 one every 4 hours p.r.n. pain. The patient has 10 pills prescribed. 2. ProAir inhaler 2 puffs q.i.d. 3. Amiodarone 200 mg b.i.d. 4. Otezla 30 mg b.i.d. 5. Diltiazem 180 mg b.i.d. 6. Xyzal 5 mg daily. 7. Lisinopril 10 mg at bedtime. 8. Oxybutynin 5 mg daily. 9. Pantoprazole 40 mg daily. 10. Pioglitazone 45 mg daily. 11. Progesterone 200 mg at bedtime. 12. [place] Thyroid 90 mg daily. 13. Tramadol 50 mg every 6 hours p.r.n. pain. FOLLOWUP INSTRUCTIONS: The patient is instructed to follow up with her primary care physician namely, myself, Dr. Fabian Bishop, and with her urologist, namely, Dr. Clint Jimenez, both in 2 weeks. MD AMAURI Ferguson/EDELL /[id number] cc: Clint Jimenez MD
--- NOTE | 2019-05-06 00:42 | Operative Report ---
DATE OF PROCEDURE: 04/03/2019 SURGEON: Clint Jimenez MD PREOPERATIVE DIAGNOSES: 1. Right ureterolithiasis. 2. Right nephrolithiasis. 3. Right indwelling ureteral stents. POSTOPERATIVE DIAGNOSES: 1. Right ureterolithiasis. 2. Right nephrolithiasis. 3. Right indwelling ureteral stents. 4. Atrophic vaginitis. 5. Grade 1 rectocele. OPERATION PERFORMED: 1. Cystourethroscopy with complicated removal of indwelling ureteral stent (separate procedure performed for the diagnosis of stent done with separate scope). 2. Right semi-rigid ureteroscopy with stone manipulation and extraction (separate procedure performed for the right ureterolithiasis). 3. Right repeated flexible ureteropyeloscopy with extraction and manipulation of numerous stones (separate procedure performed for the diagnosis of the stones in the kidney, done with the flexible scope). 4. Radiological services with supervision and interpretation of ureteroscopy. 5. Interpretation of retrograde ureteropyelography. 6. Supervision of fluoroscopy, no radiologist present. 7. Pelvic examination under anesthesia. ANESTHESIA: General. COMPLICATIONS: None. CLINICAL SUMMARY: Deepa Torrez is a 48-year-old woman with a complex urological history. She has lost the kidney to stone disease and is brought for the above procedures in hopes of rendering her stone free on the right-hand side as well. She is aware of the risks of bleeding, infection, injury to adjacent structures, need for additional procedures, and elected to proceed. She understands that her situation is rather tenuous because she only has a solitary kidney due to her prior left-sided nephrectomy. She understood these risks and elected to proceed. OPERATIVE PROCEDURE IN DETAIL: Informed consent was verified. Deepa Torrez was properly identified, taken to the operating room, and placed on the cystoscopy table in supine position. Anesthesia was uneventfully begun. The patient was then carefully and gently repositioned in dorsal lithotomy position with all pressure points well padded. Her genitalia were prepared and draped in usual sterile fashion. The cystoscope sheath with obturator in place was atraumatically inserted into the patient's urethra and the bladder was drained. Panendoscopy revealed no suspicious mucosal lesions, no tumors, no stones, no diverticula. There was a stent emerging from the right ureteral orifice and it was very minimally encrusted. A guidewire was then placed alongside the stent and guided to the level of the patient's kidney. The stent was then grasped completely removed and discarded. Semi-rigid ureteroscope was then placed alongside the guidewire into the ureter. We identified sand. The sand was irrigated loose. We did identify a stone that was large enough to be grasped with Nitinol tipless basket. We did so and removed it. A secondary guidewire was left in place. The flexible ureteroscope was then placed over the secondary guidewire and guided to the level of the patient's kidney. Panendoscopy of the intrarenal collecting system revealed a large collection of small stones. We atraumatically placed the flexible ureteroscopy sheath and then performed countless passes with the ureteroscope and the Nitinol tipless basket to extract all significantly sized stone fragments. Only fine sand remained that was too small to grasp with a tipless basket. Careful panendoscopy also revealed Emil's plaques throughout. We carefully re-examined the ureter as we exited and exhibited no sign of any trauma strictures nor any sizable stones. Fine sand remained, but it was irrigated to loosen it from the mucosa. Interpretation of retrograde ureteropyelography contrast was instilled in a retrograde fashion via the ureteroscope. The prior hydronephrosis was mostly resolved. There was no extravasation. Unobstructed drainage was observed fluoroscopically. The patient's bladder was drained and cystoscope was withdrawn. Pelvic examination under anesthesia revealed no suspicious mucosal lesions. There were no palpable pelvic masses that could be appreciated. There was atrophic vaginitis and grade 1 rectocele. The patient was uneventfully reversed from anesthesia and taken to recovery room in stable condition. There were no complications to the procedure. She tolerated the procedure well. Explicit postop instructions were given. We will plan on following the patient up on an indefinite basis, metabolic stone workup will need to be performed and ongoing close followup for this patient's solitary kidney and severe recurrent stone disease will be required. Clint Jimenez MD OH/MODL /[id number]
== END 2019-04-04 11:39 | disposition home or self-care (01) | DRG 660 ==
LOC: ER 15:33 → ERHOLD 16:50 → MED/SURG2 20:05
PROVIDERS: ADMIT Internal Medicine; ATTEND Internal Medicine
PROC: 0TC68ZZ Extirpation of Matter from Right Ureter, Via Natural or Artificial Opening Endoscopic (ICD-10-PCS; 2019-04-03)
PROC: 0TP98DZ Removal of Intraluminal Device from Ureter, Via Natural or Artificial Opening Endoscopic (ICD-10-PCS; 2019-04-03)
PROC: 0TC08ZZ Extirpation of Matter from Right Kidney, Via Natural or Artificial Opening Endoscopic (ICD-10-PCS; principal; 2019-04-03 14:30)
DX: T83.592A Infection and inflammatory reaction due to indwelling ureteral stent, initial encounter (principal); N10 Acute pyelonephritis; Z68.41 Body mass index [BMI] 40.0-44.9, adult; N30.01 Acute cystitis with hematuria; N20.2 Calculus of kidney with calculus of ureter; Q60.0 Renal agenesis, unilateral; Z87.442 Personal history of urinary calculi; E11.9 Type 2 diabetes mellitus without complications; E66.01 Morbid (severe) obesity due to excess calories; I10 Essential (primary) hypertension; Z82.49 Family history of ischemic heart disease and other diseases of the circulatory system; N95.2 Postmenopausal atrophic vaginitis; N81.6 Rectocele; D64.9 Anemia, unspecified
CPT/HCPCS: 36415; 74018; 74420; 80048; 80053; 81001; 82948; 85025; 87086; 88300; 99284; C1766; C1769; J0696; J1100; J2001; J2250; J2270; J2405; J2543; J3010; J7030; J7050

== ENCOUNTER → 2019-08-27 | Outpatient (CLI) | payer BC, OTHER ==
[~2019-08-27] VITALS: Ht 154.9 cm; Wt 92.5 kg
[~2019-08-27] MED LIST changes: +ASPIR 8181 MG PO
[2019-08-27 14:49] LABS: BASOPHILS % 0.3 % (0.0-1.0); EOSINOPHILS # (AUTO) 0.2 (0.0-0.4); EOSINOPHILS % 1.9 % (0.0-6.0); HEMATOCRIT 40.6 % (34.2-44.1); HEMOGLOBIN 12.4 g/dL (12.0-16.0); LYMPHOCYTES # (AUTO) 2.2 (1.0-3.2); LYMPHOCYTES % 28.8 % (18.0-39.1); MEAN CORPUSCULAR HEMOGLOBIN 27.1 pg (28-32); MEAN CORPUSCULAR HGB CONC 30.5 g/dL (31-35); MEAN CORPUSCULAR VOLUME 88.6 fL (81-99); MONOCYTES # (AUTO) 0.6 (0.2-0.8); MONOCYTES % 7.9 % (4.4-11.3); NEUTROPHILS # (AUTO) 4.7 (2.1-6.9); NEUTROPHILS % 60.8 % (38.7-80.0); PLATELET COUNT 234 x10e3/uL (140-360); RED BLOOD COUNT 4.58 x10e6/uL (3.6-5.1); RED CELL DISTRIBUTION WIDTH 14.5 % (11.7-14.4)
[2019-08-27 15:10] LABS: ALBUMIN 3.6 g/dL (3.5-5.0); ALBUMIN/GLOBULIN RATIO 0.9 (0.8-2.0); ANION GAP 11.7 mmol/L (8-16); CALCIUM 9.1 mg/dL (8.4-10.2); CREATININE, SERUM 0.99 mg/dL (0.57-1.11); POTASSIUM 4.7 mmol/L (3.5-5.1)
--- NOTE | 2019-08-28 15:15 | NUR ---
Pt contacted for interview of scheduled procedure. Review of medical history and current medications. Procedural consent, pre-op orders, and followup education completed. All questions clarified and or answered where appropriate. pt verbalizes understanding to include day of procedure expectations. - [facility] [place]
== END ==
LOC: RAD 05:00 → EDSTATUS 09-01 10:00
PROVIDERS: ATTEND Internal Medicine Interventional Cardiology
DX: Z01.818 Encounter for other preprocedural examination (principal); I20.8 Other forms of angina pectoris; Z53.8 Procedure and treatment not carried out for other reasons; Z11.59 Encounter for screening for other viral diseases
CPT/HCPCS: 36415; 80053; 81025; 85025; 93005; U0002

== ENCOUNTER → 2019-09-02 | Outpatient (CLI) | payer BC ==
[~2019-09-02] MED LIST changes: +FUROSEMIDE INJ 10 MG/ML 4 ML VIAL ONE
--- NOTE | 2019-09-02 22:42 | Diagnostic Imaging Report ---
Renal Scan with Lasix [place] Clinical information: Renal calculi. 49 F with history of chronic renal stones since 2010. Left kidney was removed in July 2018. Technique: Following intravenous administration of 10 mCi of Tc-99m MAG3, dynamic images of the kidneys in the posterior projection were obtained through 40 minutes. Lasix 40 mg was administered intravenously at 10 minutes post injection of the tracer. A post-void image was obtained at the end of the study. Report: Left kidney: The left kidney is surgically absent. Right kidney: Perfusion to the right kidney is prompt. The right kidney has a normal reniform shape. Extraction of tracer by the renal parenchyma is normal. Clearance of tracer from the renal parenchyma but is not complete by the end of the study. The pelvicalyceal system is not dilated. Physiologic pooling of tracer is seen within the pelvicalyceal system. Drainage of tracer from the pelvicalyceal system is prompt and adequate prior to administration of Lasix. No significant stasis of tracer is seen within the right ureter. The post-void images shows some retention of tracer in the right renal parenchyma but not tracer within the pelvicalyceal system or ureter. Differential renal function: The right kidney contributes 100% of renal function. Impression: 1. The left kidney is surgically absent. 2. Mild medical renal disease is suspected in the right kidney evidenced by incomplete excretion of tracer by the end of the study. No hydronephrosis is present. No physiologically significant obstruction of the renal collecting system is present. Signed by: Dr. Frida Newman M.D. on 09/02/2019 10:39 PM
== END ==
LOC: NM 10:15
PROVIDERS: ATTEND Urology
DX: R31.0 Gross hematuria (principal); Z87.442 Personal history of urinary calculi
CPT/HCPCS: 78708; A9562; J1940

== ENCOUNTER → 2019-12-22 | Outpatient (CLI) | payer BC ==
[~2019-12-22] MED LIST changes: -FUROSEMIDE INJ 10 MG/ML 4 ML VIAL ONE
--- NOTE | 2019-12-22 10:46 | Diagnostic Imaging Report ---
EXAM: Renal Ultrasound INDICATION: Urinary tract infection. Calculus of kidney. Prior left nephrectomy ^[id number] ^[id number] ^URINARY TRACT INFECTION COMPARISON: CT scan March 26, 2019 TECHNIQUE: Transverse and longitudinal images of the kidneys and bladder were obtained. FINDINGS: Right Kidney: Length: 11.8 x 4.9 x 6.2 cm Appearance: Normal echogenicity. Collecting system: No hydronephrosis Stones: None Cyst/Mass: None Left Kidney: Surgically absent Bladder: Normal IMPRESSION: Patient status post left nephrectomy. Otherwise, unremarkable renal ultrasound exam. Signed by: Dr. Stan Mobley M.D. on 12/22/2019 10:42 AM
--- NOTE | 2019-12-22 11:19 | Diagnostic Imaging Report ---
Abdomen, one view AP INDICATION: ^[id number] ^[id number] ^CALCULUS OF KIDNEY Comparison: 04/01/2019. Ultrasound dated 12/22/2019.. Discussion: Post surgical changes are identified in the left nephrectomy bed. Cholecystectomy changes are noted. There is a 6 mm right interpolar calculus. Right internal ureteral stent has removed. Left phlebolith is noted. No calculus is identified in the expected course of the ureters. Visualized bowel loops are not dilated. No acute osseous abnormality. IMPRESSION: There is a 6 mm right interpolar calculus. Left nephrectomy changes are again noted. Signed by: Aravind Kimball MD on 12/22/2019 11:16 AM
== END ==
LOC: US 09:33
PROVIDERS: ATTEND Urology
DX: N39.0 Urinary tract infection, site not specified (principal); N20.0 Calculus of kidney
CPT/HCPCS: 74018; 76770

== ENCOUNTER 2020-01-22 09:02 | Observation (INO) | payer BC ==
[~2020-01-22] VITALS: Ht 157.5 cm; Wt 86.2 kg
[2020-01-22] MEDS ORDERED: CEFTRIAXONE SOD 1 GM/NS 50 ML 50 ML IV ONE (11:00)
[2020-01-22] MEDS ORDERED: ONDANSETRON HCL INJ 2MG/ML 2ML 2 MG/ML VIAL IV STA (11:26)
[2020-01-22] MEDS ORDERED: GENTAMICIN 120MG/NS 100ML 100 ML IV ONE (11:30)
[2020-01-22 12:01] VITALS: BP 125/56
[2020-01-22 12:34] VITALS: BP 125/56
[2020-01-22] MEDS ORDERED: IOPAMIDOL 300MG/ML 50ML INFUS..BTL IV ONE (14:25)
[2020-01-22] MEDS ORDERED: B&O 60MG R/S 60 MG SUPP PR ONE (14:25)
[2020-01-22] MEDS ORDERED: MEPERIDINE HCL INJ 25 MG/ML VIAL ONE (15:46)
[2020-01-22 16:19] VITALS: BP 134/60
[2020-01-22 16:20] VITALS: BP 134/60
[2020-01-22] MEDS ORDERED: VESICARE5 MG PO (17:35)
[2020-01-22] MEDS ORDERED: TYLENOL # 31 EA PO (17:35)
== END 2020-01-22 18:37 | disposition home or self-care (01) ==
LOC: ER 09:07 → ERHOLD 09:08 → MED/SURG 12:04
PROVIDERS: ADMIT Urology; ATTEND Urology
DX: N20.0 Calculus of kidney (principal); I10 Essential (primary) hypertension; I48.91 Unspecified atrial fibrillation; E11.9 Type 2 diabetes mellitus without complications; N95.2 Postmenopausal atrophic vaginitis; N81.10 Cystocele, unspecified; G47.33 Obstructive sleep apnea (adult) (pediatric); Z90.49 Acquired absence of other specified parts of digestive tract; Z96.651 Presence of right artificial knee joint; Z90.5 Acquired absence of kidney; Z88.2 Allergy status to sulfonamides; Z20.828 Contact with and (suspected) exposure to other viral communicable diseases; Z87.442 Personal history of urinary calculi; E66.9 Obesity, unspecified; Z68.34 Body mass index [BMI] 34.0-34.9, adult
CPT/HCPCS: 50590; 52332; 74018; 74420; 87086; 87400; 93005; 99284; C1758; C1769; C2617; G0378; J0696; J1580; J2175; J2405; Q9967; U0002

== ENCOUNTER 2020-09-30 20:55 | Emergency (ER) | payer BC ==
[~2020-09-30] VITALS: Ht 157.5 cm; Wt 86.2 kg
[~2020-09-30 20:55] MED LIST changes: +TYLENOL # 31 EA PO; +VESICARE5 MG PO
[2020-09-30 21:29] LABS: BASOPHILS % 0.2 % (0.0-1.0); EOSINOPHILS % 0.2 % (0.0-6.0); HEMATOCRIT 40.3 % (34.2-44.1); HEMOGLOBIN 12.5 g/dL (12.0-16.0); LYMPHOCYTES # (AUTO) 0.9 (1.0-3.2); LYMPHOCYTES % 22.3 % (18.0-39.1); MEAN CORPUSCULAR HEMOGLOBIN 27.8 pg (28-32); MEAN CORPUSCULAR VOLUME 89.6 fL (81-99); MONOCYTES # (AUTO) 0.4 (0.2-0.8); NEUTROPHILS # (AUTO) 2.8 (2.1-6.9); NEUTROPHILS % 67.1 % (38.7-80.0); PLATELET COUNT 145 x10e3/uL (140-360); RED CELL DISTRIBUTION WIDTH 13.1 % (11.7-14.4)
[2020-09-30 21:42] LABS: CREATININE, SERUM 0.95 mg/dL (0.57-1.11)
[2020-09-30 21:45] LABS: CLARITY,URINE CLOUDY (CLEAR); COLOR,URINE AMBER (YELLOW); KETONES,URINE NEGATIVE (NEGATIVE); LEUKOCYTE ESTERASE ,URINE MODERATE (NEGATIVE); NITRITE,URINE NEGATIVE (NEGATIVE); PROTEIN,URINE DIPSTICK 1+ (NEGATIVE); URINE UROBILINOGEN 0.2 mg/dL (0.2 - 1)
[2020-09-30 21:55] LABS: BACTERIA,URINE FEW /HPF; EPITHELIAL CELLS,URINE MODERATE /LPF; RBC,URINE >50 /HPF (0-5)
[2020-09-30] MEDS ORDERED: CASIRIVIMAB/IMDEVIMAB 10 ML in SODIUM CHLORIDE 0.9% 100 ML IV ONE (22:15)
[2020-10-01] MEDS ORDERED: ACETAMINOPHEN 325 MG TAB PO ONE (00:15)
[2020-10-01 02:27] VITALS: BP 142/78
== END 2020-10-01 01:00 | disposition home or self-care (01) ==
LOC: ER 21:17
DX: R50.9 Fever, unspecified (principal); R05 Cough; U07.1 COVID-19; M54.5 Low back pain; N39.0 Urinary tract infection, site not specified; I10 Essential (primary) hypertension; I73.9 Peripheral vascular disease, unspecified
CPT/HCPCS: 36415; 74176; 80048; 81001; 85025; 99284; J7050; U0002

== ENCOUNTER 2020-10-13 21:00 | Inpatient (IN) | payer BC ==
[~2020-10-13] VITALS: Ht 157.5 cm; Wt 86.2 kg
[2020-10-13 22:23] LABS: BASOPHILS % 0.2 % (0.0-1.0); EOSINOPHILS # (AUTO) 0.1 (0.0-0.4); EOSINOPHILS % 0.7 % (0.0-6.0); HEMATOCRIT 39.9 % (34.2-44.1); HEMOGLOBIN 12.8 g/dL (12.0-16.0); LYMPHOCYTES # (AUTO) 2.2 (1.0-3.2); LYMPHOCYTES % 23.9 % (18.0-39.1); MEAN CORPUSCULAR HEMOGLOBIN 27.9 pg (28-32); MEAN CORPUSCULAR HGB CONC 32.1 g/dL (31-35); MEAN CORPUSCULAR VOLUME 86.9 fL (81-99); MONOCYTES # (AUTO) 0.8 (0.2-0.8); MONOCYTES % 9.2 % (4.4-11.3); NEUTROPHILS % 65.7 % (38.7-80.0); PLATELET COUNT 418 x10e3/uL (140-360); RED BLOOD COUNT 4.59 x10e6/uL (3.6-5.1); RED CELL DISTRIBUTION WIDTH 13.5 % (11.7-14.4)
[2020-10-13 22:37] LABS: ALBUMIN 3.8 g/dL (3.5-5.0); ANION GAP 16.6 mmol/L (8-16); CALCIUM 8.6 mg/dL (8.4-10.2); POTASSIUM 3.6 mmol/L (3.5-5.1)
[2020-10-13 23:32] LABS: CREATINE KINASE MB 0.7 ng/mL (0-5.0)
[2020-10-13] MEDS ORDERED: CEFTRIAXONE 1 GM in SODIUM CHLORIDE 0.9% 50ML 50 ML IV ONE (23:45)
[2020-10-13 23:56] LABS: CLARITY,URINE CLOUDY (CLEAR); COLOR,URINE YELLOW (YELLOW); KETONES,URINE NEGATIVE (NEGATIVE); LEUKOCYTE ESTERASE ,URINE NEGATIVE (NEGATIVE); NITRITE,URINE NEGATIVE (NEGATIVE); PROTEIN,URINE DIPSTICK NEGATIVE (NEGATIVE); URINE UROBILINOGEN 0.2 mg/dL (0.2 - 1)
[2020-10-13] MEDS: MORPHINE SULFATE INJ 4 MG/ML INJ 1ML IV PRN (23:57)
[2020-10-13] MEDS: SODIUM CHLORIDE 0.9% 1000ML 1,000 ML IV SCH (23:57)
[2020-10-13] MEDS: ONDANSETRON HCL INJ 2MG/ML 2ML 2 MG/ML VIAL IV PRN (23:57)
[2020-10-14] VITALS (7 sets, daily range): BP systolic 122–151; BP diastolic 55–87
[2020-10-14 00:11] LABS: BACTERIA,URINE FEW /HPF; EPITHELIAL CELLS,URINE FEW /LPF; WBC,URINE (MAN) 21-50 /HPF (0-5)
[2020-10-14] MEDS: SODIUM CHLORIDE 0.9% 1000ML 1,000 ML IV SCH ×2 (02:51→12:30)
[2020-10-14] MEDS: ONDANSETRON HCL INJ 2MG/ML 2ML 2 MG/ML VIAL IV PRN ×2 (04:00→08:00)
[2020-10-14] MEDS: MORPHINE SULFATE INJ 4 MG/ML INJ 1ML IV PRN ×3 (04:00→20:23)
[2020-10-14] MEDS: CEFTRIAXONE 1 GM in SODIUM CHLORIDE 0.9% 50ML 50 ML IV SCH ×2 (08:00→20:23)
[2020-10-14 08:16] LABS: BASOPHILS % 0.2 % (0.0-1.0); EOSINOPHILS # (AUTO) 0.1 (0.0-0.4); EOSINOPHILS % 0.9 % (0.0-6.0); HEMATOCRIT 36.3 % (34.2-44.1); HEMOGLOBIN 11.6 g/dL (12.0-16.0); LYMPHOCYTES # (AUTO) 1.8 (1.0-3.2); LYMPHOCYTES % 21.4 % (18.0-39.1); MEAN CORPUSCULAR HEMOGLOBIN 28.2 pg (28-32); MEAN CORPUSCULAR VOLUME 88.1 fL (81-99); MONOCYTES # (AUTO) 0.9 (0.2-0.8); MONOCYTES % 10.7 % (4.4-11.3); NEUTROPHILS # (AUTO) 5.7 (2.1-6.9); NEUTROPHILS % 66.4 % (38.7-80.0); PLATELET COUNT 308 x10e3/uL (140-360); RED BLOOD COUNT 4.12 x10e6/uL (3.6-5.1); RED CELL DISTRIBUTION WIDTH 13.5 % (11.7-14.4)
[2020-10-14 08:40] LABS: ALBUMIN 3.4 g/dL (3.5-5.0); ALBUMIN/GLOBULIN RATIO 1.1 (0.8-2.0); ANION GAP 13.4 mmol/L (8-16); CALCIUM 8.4 mg/dL (8.4-10.2); CREATININE, SERUM 0.82 mg/dL (0.57-1.11); POTASSIUM 4.4 mmol/L (3.5-5.1)
[2020-10-14] MEDS ORDERED: IOPAMIDOL 300MG/ML 50ML INFUS..BTL IV ONE (10:13)
[2020-10-14] MEDS ORDERED: BELLADONNA/OPIUM 30 MG SUPP RC ONE (10:31)
[2020-10-14] MEDS ORDERED: B&O 60MG R/S 60 MG SUPP PR PRN (11:00)
[2020-10-15] VITALS (8 sets, daily range): BP systolic 133–167; BP diastolic 56–82
[2020-10-15] MEDS: SODIUM CHLORIDE 0.9% 1000ML 1,000 ML IV SCH ×3 (00:51→14:12)
[2020-10-15] MEDS: ACETAMINOPHEN/CODEINE 300MG - 30MG TAB PO PRN ×2 (05:00→20:41)
[2020-10-15 05:28] LABS: BASOPHILS % 0.1 % (0.0-1.0); HEMATOCRIT 37.1 % (34.2-44.1); HEMOGLOBIN 11.9 g/dL (12.0-16.0); LYMPHOCYTES # (AUTO) 1.1 (1.0-3.2); LYMPHOCYTES % 7.6 % (18.0-39.1); MEAN CORPUSCULAR HEMOGLOBIN 28.1 pg (28-32); MEAN CORPUSCULAR HGB CONC 32.1 g/dL (31-35); MEAN CORPUSCULAR VOLUME 87.5 fL (81-99); MONOCYTES # (AUTO) 1.1 (0.2-0.8); NEUTROPHILS # (AUTO) 12.6 (2.1-6.9); NEUTROPHILS % 84.8 % (38.7-80.0); PLATELET COUNT 352 x10e3/uL (140-360); RED BLOOD COUNT 4.24 x10e6/uL (3.6-5.1); RED CELL DISTRIBUTION WIDTH 13.3 % (11.7-14.4)
[2020-10-15 05:50] LABS: ANION GAP 15.3 mmol/L (8-16); CALCIUM 8.8 mg/dL (8.4-10.2); CREATININE, SERUM 0.87 mg/dL (0.57-1.11); POTASSIUM 5.3 mmol/L (3.5-5.1)
[2020-10-15] MEDS ORDERED: SOD POLYSTYRENE SULFONATE SUSP 15 GM/60 ML BTL PO NR (09:30)
[2020-10-15] MEDS: CEFTRIAXONE 1 GM in SODIUM CHLORIDE 0.9% 50ML 50 ML IV SCH ×2 (09:39→20:23)
[2020-10-15] MEDS ORDERED: LISINOPRIL 10 MG TAB PO ONE (13:45)
[2020-10-15] MEDS: PHENAZOPYRIDINE HCL 100 MG TAB PO PRN (18:06)
[2020-10-16] VITALS: BP 141/62
[2020-10-16 04:00] VITALS: BP 156/73
[2020-10-16 06:32] LABS: BASOPHILS % 0.2 % (0.0-1.0); EOSINOPHILS # (AUTO) 0.1 (0.0-0.4); EOSINOPHILS % 0.7 % (0.0-6.0); HEMATOCRIT 36.6 % (34.2-44.1); HEMOGLOBIN 11.8 g/dL (12.0-16.0); LYMPHOCYTES % 23.9 % (18.0-39.1); MEAN CORPUSCULAR HEMOGLOBIN 28.1 pg (28-32); MEAN CORPUSCULAR HGB CONC 32.2 g/dL (31-35); MEAN CORPUSCULAR VOLUME 87.1 fL (81-99); MONOCYTES # (AUTO) 0.6 (0.2-0.8); MONOCYTES % 7.3 % (4.4-11.3); NEUTROPHILS # (AUTO) 5.7 (2.1-6.9); NEUTROPHILS % 67.5 % (38.7-80.0); PLATELET COUNT 310 x10e3/uL (140-360); RED CELL DISTRIBUTION WIDTH 13.2 % (11.7-14.4)
[2020-10-16 06:44] LABS: ALBUMIN 3.4 g/dL (3.5-5.0); ALBUMIN/GLOBULIN RATIO 1.1 (0.8-2.0); CALCIUM 8.4 mg/dL (8.4-10.2); CREATININE, SERUM 0.97 mg/dL (0.57-1.11)
[2020-10-16 08:00] VITALS: BP 134/74
[2020-10-16 08:27] VITALS: BP 134/74
[2020-10-16] MEDS ORDERED: LISINOPRIL 10 MG TAB PO SCH (09:00)
[2020-10-16] MEDS: CEFTRIAXONE 1 GM in SODIUM CHLORIDE 0.9% 50ML 50 ML IV SCH (09:37)
[2020-10-16] MEDS: PHENAZOPYRIDINE HCL 100 MG TAB PO PRN (09:38)
[2020-10-16 12:10] VITALS: BP 136/75
[2020-10-16] MEDS ORDERED: PYRIDIUM100 MG PO (12:42)
[2020-10-16] MEDS ORDERED: LISINOPRIL10 MG PO (12:42)
[2020-10-16 15:47] VITALS: BP 126/76
== END 2020-10-16 19:13 | disposition home or self-care (01) | DRG 660 ==
LOC: ER 22:38 → ERHOLD 23:41 → IMCU 10-14 01:51
PROVIDERS: ADMIT Internal Medicine; ATTEND Internal Medicine
PROC: 0TC68ZZ Extirpation of Matter from Right Ureter, Via Natural or Artificial Opening Endoscopic (ICD-10-PCS; principal; 2020-10-13)
PROC: 0T768DZ Dilation of Right Ureter with Intraluminal Device, Via Natural or Artificial Opening Endoscopic (ICD-10-PCS; 2020-10-13)
PROC: BT1D1ZZ Fluoroscopy of Right Kidney, Ureter and Bladder using Low Osmolar Contrast (ICD-10-PCS; 2020-10-13)
DX: N13.6 Pyonephrosis (principal); N20.1 Calculus of ureter; N39.0 Urinary tract infection, site not specified; N81.10 Cystocele, unspecified; N81.6 Rectocele; N36.41 Hypermobility of urethra; R31.29 Other microscopic hematuria; Z90.5 Acquired absence of kidney; G47.33 Obstructive sleep apnea (adult) (pediatric); Z98.84 Bariatric surgery status; D64.9 Anemia, unspecified; E66.9 Obesity, unspecified; Z68.34 Body mass index [BMI] 34.0-34.9, adult; Z86.16 Personal history of COVID-19
CPT/HCPCS: 36415; 74176; 74420; 80048; 80053; 81001; 82550; 82553; 83970; 84484; 84550; 85025; 87086; 88300; 96361; 99284; C1758; C2617; J0696; J2270; J2405; J7030; U0002

== ENCOUNTER → 2020-11-04 | Day surgery (SDC) | payer BC ==
[2020-11-03 10:18] LABS: BASOPHILS % 0.3 % (0.0-1.0); EOSINOPHILS # (AUTO) 0.2 (0.0-0.4); EOSINOPHILS % 2.6 % (0.0-6.0); HEMATOCRIT 38.1 % (34.2-44.1); HEMOGLOBIN 11.7 g/dL (12.0-16.0); LYMPHOCYTES # (AUTO) 1.6 (1.0-3.2); LYMPHOCYTES % 20.9 % (18.0-39.1); MEAN CORPUSCULAR HEMOGLOBIN 27.8 pg (28-32); MEAN CORPUSCULAR HGB CONC 30.7 g/dL (31-35); MEAN CORPUSCULAR VOLUME 90.5 fL (81-99); MONOCYTES # (AUTO) 0.7 (0.2-0.8); MONOCYTES % 8.4 % (4.4-11.3); NEUTROPHILS # (AUTO) 5.2 (2.1-6.9); NEUTROPHILS % 67.5 % (38.7-80.0); PLATELET COUNT 247 x10e3/uL (140-360); RED BLOOD COUNT 4.21 x10e6/uL (3.6-5.1); RED CELL DISTRIBUTION WIDTH 13.8 % (11.7-14.4)
[2020-11-03 10:37] LABS: ALBUMIN 3.6 g/dL (3.5-5.0); ALBUMIN/GLOBULIN RATIO 1.1 (0.8-2.0); ANION GAP 14.7 mmol/L (8-16); CALCIUM 8.9 mg/dL (8.4-10.2); CREATININE, SERUM 0.97 mg/dL (0.57-1.11); POTASSIUM 4.7 mmol/L (3.5-5.1)
[~2020-11-04] MED LIST changes: +BELLADONNA/OPIUM 30 MG SUPP RC ONE; +FENTANYL CITRATE/PF 100MCG/2 ML INJ ONE; +FLUCONAZOLE 200 MG/100 ML 100 ML IV ONE; +IOPAMIDOL 300MG/ML 50ML INFUS..BTL IV ONE
[2020-11-04] MEDS: PIPERACILLIN/TAZOBACTAM 3.375 GM in SODIUM CHLORIDE 0.9% 50ML 50 ML IV PRN ×3 (07:55→10:20)
[2020-11-04 11:40] VITALS: BP 125/71
== END | disposition home or self-care (01) ==
LOC: OR 07:19
PROVIDERS: ATTEND Urology
DX: Z46.6 Encounter for fitting and adjustment of urinary device (principal); Z87.442 Personal history of urinary calculi; N28.89 Other specified disorders of kidney and ureter; N81.10 Cystocele, unspecified; N81.6 Rectocele; N36.41 Hypermobility of urethra; Z90.5 Acquired absence of kidney; G47.33 Obstructive sleep apnea (adult) (pediatric); I10 Essential (primary) hypertension; R00.1 Bradycardia, unspecified; K21.9 Gastro-esophageal reflux disease without esophagitis; E11.9 Type 2 diabetes mellitus without complications; Z88.2 Allergy status to sulfonamides; Z01.810 Encounter for preprocedural cardiovascular examination; Z01.812 Encounter for preprocedural laboratory examination; Z01.818 Encounter for other preprocedural examination; Z68.38 Body mass index [BMI] 38.0-38.9, adult
CPT/HCPCS: 36415; 52351; 71046; 74018; 74420; 80053; 84550; 85025; 87086; 93005; C1769; J1450; J2543; J3010; Q9967

== ENCOUNTER 2020-11-05 13:13 | Emergency (ER) | payer BC ==
[~2020-11-05] VITALS: Ht 309.9 cm; Wt 86.2 kg
[~2020-11-05 13:13] MED LIST changes: -BELLADONNA/OPIUM 30 MG SUPP RC ONE; -FENTANYL CITRATE/PF 100MCG/2 ML INJ ONE; -FLUCONAZOLE 200 MG/100 ML 100 ML IV ONE; -IOPAMIDOL 300MG/ML 50ML INFUS..BTL IV ONE
[2020-11-05] MEDS ORDERED: SODIUM CHLORIDE 0.9% 1000ML 1,000 ML IV STA (14:33)
[2020-11-05 15:08] LABS: BASOPHILS % 0.2 % (0.0-1.0); HEMATOCRIT 40.3 % (34.2-44.1); HEMOGLOBIN 12.8 g/dL (12.0-16.0); LYMPHOCYTES # (AUTO) 0.5 (1.0-3.2); LYMPHOCYTES % 4.3 % (18.0-39.1); MEAN CORPUSCULAR HEMOGLOBIN 28.4 pg (28-32); MEAN CORPUSCULAR HGB CONC 31.8 g/dL (31-35); MEAN CORPUSCULAR VOLUME 89.4 fL (81-99); MONOCYTES # (AUTO) 0.3 (0.2-0.8); MONOCYTES % 2.9 % (4.4-11.3); NEUTROPHILS # (AUTO) 9.7 (2.1-6.9); NEUTROPHILS % 92.1 % (38.7-80.0); PLATELET COUNT 231 x10e3/uL (140-360); RED BLOOD COUNT 4.51 x10e6/uL (3.6-5.1); RED CELL DISTRIBUTION WIDTH 13.6 % (11.7-14.4)
[2020-11-05 15:29] LABS: ALBUMIN 3.4 g/dL (3.5-5.0); ALBUMIN/GLOBULIN RATIO 0.9 (0.8-2.0); ANION GAP 12.7 mmol/L (8-16); CALCIUM 8.7 mg/dL (8.4-10.2); CLARITY,URINE HAZY (CLEAR); COLOR,URINE YELLOW (YELLOW); CREATININE, SERUM 1.11 mg/dL (0.57-1.11); MAGNESIUM 1.9 MG/DL (1.3-2.1); POTASSIUM 3.7 mmol/L (3.5-5.1)
[2020-11-05 15:30] LABS: BACTERIA,URINE FEW /HPF; EPITHELIAL CELLS,URINE MODERATE /LPF; KETONES,URINE NEGATIVE (NEGATIVE); LEUKOCYTE ESTERASE ,URINE SMALL (NEGATIVE); NITRITE,URINE NEGATIVE (NEGATIVE); PROTEIN,URINE DIPSTICK NEGATIVE (NEGATIVE); URINE UROBILINOGEN 0.2 mg/dL (0.2 - 1); WBC,URINE (MAN) 21-50 /HPF (0-5)
[2020-11-05 15:59] LABS: BAND NEUTROPHILS % (MANUAL) 1 %; LYMPHOCYTES % (MANUAL) 6 % (19-48); MONOCYTES % (MANUAL) 2 % (3.4-9.0); NEUTROPHILS % (MANUAL) 91 % (40-74); PLATELET ESTIMATE ADEQUATE; PLATELET MORPHOLOGY COMMENT NORMAL; RBC MORPHOLOGY COMMENT NORMAL
[2020-11-05] MEDS ORDERED: CEFTRIAXONE 1 GM in SODIUM CHLORIDE 0.9% 50ML 50 ML IV ONE (16:15)
[2020-11-05 17:05] VITALS: BP 129/77
== END 2020-11-05 17:13 | disposition home or self-care (01) ==
LOC: ER 13:42
DX: R10.31 Right lower quadrant pain (principal); N39.0 Urinary tract infection, site not specified; I10 Essential (primary) hypertension; I48.91 Unspecified atrial fibrillation; I73.9 Peripheral vascular disease, unspecified
CPT/HCPCS: 36415; 74176; 80053; 81001; 83735; 85025; 87040; 87086; 99284; J0696; J7030

== ENCOUNTER 2022-01-03 20:04 | Emergency (ER) | payer OTHER ==
[~2022-01-03] VITALS: Ht 309.9 cm; Wt 86.2 kg
[2022-01-03] MEDS ORDERED: ACETAMINOPHEN 325 MG TAB PO ONE (21:15)
[2022-01-03] MEDS ORDERED: NICOTINE 21 MG/EA PATCH TOP ONE (21:15)
[2022-01-03] MEDS ORDERED: ACETAMINOPHEN 325 MG TAB ONE (21:37)
[2022-01-03] MEDS ORDERED: ULTRAM 50MG50 MG PO ×2 (22:49→22:50)
[2022-01-03 23:00] VITALS: BP 138/73
== END 2022-01-03 23:02 | disposition home or self-care (01) ==
LOC: ER 20:07
DX: S80.11XA Contusion of right lower leg, initial encounter (principal); Y04.0XXA Assault by unarmed brawl or fight, initial encounter; R07.89 Other chest pain; I10 Essential (primary) hypertension; I48.91 Unspecified atrial fibrillation; Z88.2 Allergy status to sulfonamides
CPT/HCPCS: 71046; 74018; 99283

== ENCOUNTER 2022-03-27 15:56 | Emergency (ER) | payer OTHER ==
[~2022-03-27] VITALS: Ht 154.9 cm; Wt 111.1 kg
[~2022-03-27 15:56] MED LIST changes: +ULTRAM 50MG50 MG PO
[2022-03-27 17:28] VITALS: BP 161/92
[2022-03-27] MEDS ORDERED: DIPHENHYDRAMINE25 M2 PO (17:31)
[2022-03-27] MEDS ORDERED: BENZONATATE200 MG PO (17:31)
[2022-03-27] MEDS ORDERED: LEVOFLOXACIN250 MG PO (17:31)
[2022-03-27] MEDS ORDERED: VENTOLIN HFA18 GM INH (17:31)
== END 2022-03-27 17:58 | disposition home or self-care (01) ==
LOC: FSED 16:03
DX: R05.9 Cough, unspecified (principal); J40 Bronchitis, not specified as acute or chronic; J06.9 Acute upper respiratory infection, unspecified; R09.1 Pleurisy; R10.30 Lower abdominal pain, unspecified; I10 Essential (primary) hypertension; I48.91 Unspecified atrial fibrillation; I73.9 Peripheral vascular disease, unspecified
CPT/HCPCS: 71046; 81003; 82948; 87400; 99283

== ENCOUNTER 2022-07-24 18:42 | Emergency (ER) | payer OTHER ==
[~2022-07-24] VITALS: Ht 154.9 cm; Wt 102.1 kg
[~2022-07-24 18:42] MED LIST changes: +BENZONATATE200 MG PO; +DIPHENHYDRAMINE25 M2 PO; +LEVOFLOXACIN250 MG PO; +VENTOLIN HFA18 GM INH
[2022-07-24 18:50] VITALS: O2SAT 100
[2022-07-24] MEDS ORDERED: FAMOTIDINE 20 MG/2 ML VIAL IV STA (19:07)
[2022-07-24 20:08] LABS: BASOPHILS % 0.2 % (0.0-1.0); EOSINOPHILS # (AUTO) 0.1 (0.0-0.4); EOSINOPHILS % 1.2 % (0.0-6.0); HEMOGLOBIN 11.3 g/dL (12.0-16.0); LYMPHOCYTES # (AUTO) 1.7 (1.0-3.2); LYMPHOCYTES % 18.5 % (18.0-39.1); MEAN CORPUSCULAR HEMOGLOBIN 24.8 pg (28-32); MEAN CORPUSCULAR HGB CONC 30.5 g/dL (31-35); MEAN CORPUSCULAR VOLUME 81.1 fL (81-99); MONOCYTES # (AUTO) 0.8 (0.2-0.8); MONOCYTES % 8.5 % (4.4-11.3); NEUTROPHILS # (AUTO) 6.4 (2.1-6.9); NEUTROPHILS % 71.5 % (38.7-80.0); PLATELET COUNT 292 x10e3/uL (140-360); RED BLOOD COUNT 4.56 x10e6/uL (3.6-5.1); RED CELL DISTRIBUTION WIDTH 15.2 % (11.7-14.4)
[2022-07-24 20:31] LABS: ALANINE AMINOTRANSFERASE 22 IU/L (0-55); ALBUMIN 3.4 g/dL (3.5-5.0); ALKALINE PHOSPHATASE 75 IU/L (40-150); ANION GAP 11.2 mmol/L (8-16); BLOOD UREA NITROGEN 10 mg/dL (7-26); BUN/CREATININE RATIO 10 (6-25); CALCIUM 8.5 mg/dL (8.4-10.2); CARBON DIOXIDE 26 mmol/L (22-29); CHLORIDE 109 mmol/L (98-107); CREATINE KINASE 48 IU/L (29-168); CREATININE, SERUM 1.05 mg/dL (0.57-1.11); GLUCOSE 118 mg/dL (74-118); POTASSIUM 3.2 mmol/L (3.5-5.1); SODIUM 143 mmol/L (136-145)
[2022-07-24 20:51] LABS: CLARITY,URINE SL CLOUDY (CLEAR); COLOR,URINE YELLOW (YELLOW); KETONES,URINE NEGATIVE (NEGATIVE); LEUKOCYTE ESTERASE ,URINE NEGATIVE (NEGATIVE); NITRITE,URINE NEGATIVE (NEGATIVE); PROTEIN,URINE DIPSTICK NEGATIVE (NEGATIVE); URINE UROBILINOGEN 0.2 mg/dL (0.2 - 1)
[2022-07-24 21:00] LABS: BACTERIA,URINE MODERATE /HPF; EPITHELIAL CELLS,URINE MODERATE /LPF; RBC,URINE 0-5 /HPF (0-5)
[2022-07-24] MEDS ORDERED: ONDANSETRON ODT4 MG PO (22:04)
[2022-07-24] MEDS ORDERED: PROTONIX20 MG PO (22:04)
[2022-07-26] MEDS ORDERED: LISINOPRIL10 MG PO (14:57)
[2022-07-26] MEDS ORDERED: OTEZLA30 MG PO (14:57)
[2022-07-26] MEDS ORDERED: IBUPROFEN200 MG PO (14:57)
[2022-07-26] MEDS ORDERED: PROTONIX20 MG PO (14:57)
[2022-07-26] MEDS ORDERED: FARXIGA5 MG PO (14:57)
[2022-07-26] MEDS ORDERED: SILVADENE20 GM TOP (14:57)
[2022-07-26] MEDS ORDERED: ALKA-SELTZER H1 EAC1 PO (14:57)
== END 2022-07-24 22:15 | disposition home or self-care (01) ==
LOC: ER 18:48
DX: R10.13 Epigastric pain (principal); I10 Essential (primary) hypertension; I48.91 Unspecified atrial fibrillation; I73.9 Peripheral vascular disease, unspecified
CPT/HCPCS: 36415; 74177; 80053; 81001; 82550; 83690; 84484; 85025; 93005; 99284; C9113

== ENCOUNTER → 2022-07-28 | Day surgery (SDC) | payer OTHER ==
[~2022-07-28] MED LIST changes: +ALKA-SELTZER H1 EAC1 PO; +FARXIGA5 MG PO; +IBUPROFEN200 MG PO; +LACTATED RINGER'S 1,000 ML ONE; +LIDOCAINE HCL 2% LOCAL INJ 5 ML SDV VIAL INJ ONE; +METOCLOPRAMIDE HCL 10 MG/2ML VIAL IV ONE; +METOCLOPRAMIDE HCL 10 MG/2ML VIAL ONE; +ONDANSETRON ODT4 MG PO; +PROPOFOL IV EMULSION 10 MG/ML 20 ML VIAL ONE; +PROTONIX20 MG PO; +SILVADENE20 GM TOP
[2022-07-28 14:39] VITALS: TEMP 97.5
[2022-07-28 14:59] VITALS: BP 114/65; PULSE 82; RESP 18; O2SAT 97
== END | disposition home or self-care (01) ==
LOC: OR 12:46
PROVIDERS: ATTEND Internal Medicine Gastroenterology
DX: K29.70 Gastritis, unspecified, without bleeding (principal); K21.9 Gastro-esophageal reflux disease without esophagitis; K20.90 Esophagitis, unspecified without bleeding; Z98.84 Bariatric surgery status; Z71.3 Dietary counseling and surveillance; G47.33 Obstructive sleep apnea (adult) (pediatric); E11.9 Type 2 diabetes mellitus without complications; I10 Essential (primary) hypertension; I49.9 Cardiac arrhythmia, unspecified; F17.200 Nicotine dependence, unspecified, uncomplicated; Z88.2 Allergy status to sulfonamides; Z79.85 Long-term (current) use of injectable non-insulin antidiabetic drugs; Z79.899 Other long term (current) drug therapy; Z68.41 Body mass index [BMI] 40.0-44.9, adult; Z80.0 Family history of malignant neoplasm of digestive organs
CPT/HCPCS: 36415; 43239; 82948; C9113; J2001; J2704; J2765; J7121

== ENCOUNTER 2023-10-15 17:18 | Emergency (ER) | payer OTHER ==
[~2023-10-15] VITALS: Ht 154.9 cm; Wt 117.9 kg
[~2023-10-15 17:18] MED LIST changes: +DOXYCYCLINE HY100 MG PO; -LACTATED RINGER'S 1,000 ML ONE; -LIDOCAINE HCL 2% LOCAL INJ 5 ML SDV VIAL INJ ONE; -METOCLOPRAMIDE HCL 10 MG/2ML VIAL IV ONE; -METOCLOPRAMIDE HCL 10 MG/2ML VIAL ONE; +NAPROXEN250 MG PO; +PREDNISONE20 MG PO; -PROPOFOL IV EMULSION 10 MG/ML 20 ML VIAL ONE
[2023-10-15 17:40] VITALS: TEMP 97.9
[2023-10-15] MEDS ORDERED: SODIUM CHLORIDE FLUSH 10 ML SYR INJ PRN (18:30)
[2023-10-15 18:39] LABS: BASOPHILS % 0.5 % (0.0-1.0); EOSINOPHILS # (AUTO) 0.1 (0.0-0.4); EOSINOPHILS % 1.6 % (0.0-6.0); HEMATOCRIT 41.6 % (34.2-44.1); HEMOGLOBIN 12.6 g/dL (12.0-16.0); LYMPHOCYTES # (AUTO) 2.3 (1.0-3.2); MEAN CORPUSCULAR HEMOGLOBIN 25.4 pg (28-32); MEAN CORPUSCULAR HGB CONC 30.3 g/dL (31-35); MEAN CORPUSCULAR VOLUME 83.7 fL (81-99); MONOCYTES # (AUTO) 0.8 (0.2-0.8); MONOCYTES % 10.1 % (4.4-11.3); NEUTROPHILS # (AUTO) 4.4 (2.1-6.9); NEUTROPHILS % 57.5 % (38.7-80.0); PLATELET COUNT 337 x10e3/uL (140-360); RED BLOOD COUNT 4.97 x10e6/uL (3.6-5.1); RED CELL DISTRIBUTION WIDTH 15.1 % (11.7-14.4); WHITE BLOOD COUNT 7.64 x10e3/uL (4.8-10.8)
[2023-10-15 18:42] LABS: BILIRUBIN,URINE NEGATIVE (NEGATIVE); CLARITY,URINE SL CLOUDY (CLEAR); COLOR,URINE YELLOW (YELLOW); GLUCOSE, URINE NEGATIVE (NEGATIVE); KETONES,URINE NEGATIVE (NEGATIVE); LEUKOCYTE ESTERASE ,URINE SMALL (NEGATIVE); NITRITE,URINE NEGATIVE (NEGATIVE); PH,URINE 6 (5 - 7); PROTEIN,URINE DIPSTICK NEGATIVE (NEGATIVE); URINE UROBILINOGEN 0.2 mg/dL (0.2 - 1)
[2023-10-15] MEDS: ONDANSETRON HCL INJ 2MG/ML 2ML 2 MG/ML VIAL IV ONE (18:43)
[2023-10-15] MEDS: Morphine 4mg INJECTION 4 MG/ML INJ IV ONE (18:43)
[2023-10-15 18:51] LABS: ALBUMIN 3.9 g/dL (3.5-5.0); ALBUMIN/GLOBULIN RATIO 1.1 (0.8-2.0); ANION GAP 15.5 mmol/L (8-16); BILIRUBIN,TOTAL 0.4 mg/dL (0.2-1.2); CALCIUM 8.9 mg/dL (8.4-10.2); CREATININE, SERUM 0.99 mg/dL (0.57-1.11); POTASSIUM 3.5 mmol/L (3.5-5.1); TOTAL PROTEIN 7.6 g/dL (6.5-8.1)
[2023-10-15 18:53] LABS: BACTERIA,URINE MODERATE /HPF; EPITHELIAL CELLS,URINE MODERATE /LPF; RBC,URINE 0-5 /HPF (0-5); TRANSITIONAL EPI CELLS,URINE MODERATE
[2023-10-15 20:14] VITALS: PULSE 59; RESP 16; O2SAT 99
[2023-10-15] MEDS ORDERED: ONDANSETRON ODT4 MG SL (20:29)
[2023-10-15] MEDS ORDERED: CEFDINIR300 MG PO (20:29)
[2023-10-15] MEDS ORDERED: PYRIDIUM200 MG PO (20:29)
== END 2023-10-15 20:35 | disposition home or self-care (01) ==
LOC: ER 17:39
DX: R10.9 Unspecified abdominal pain (principal); N39.0 Urinary tract infection, site not specified; R11.0 Nausea; I10 Essential (primary) hypertension; I48.91 Unspecified atrial fibrillation; Z98.84 Bariatric surgery status
CPT/HCPCS: 36415; 74176; 80053; 81001; 85025; 99283; J2270; J2405

== ENCOUNTER 2024-09-05 12:46 | Inpatient (IN) | payer OTHER ==
[~2024-09-05] VITALS: Ht 154.9 cm; Wt 90.7 kg
[~2024-09-05 12:46] MED LIST changes: +CEFDINIR300 MG PO; +ONDANSETRON ODT4 MG SL; +PYRIDIUM200 MG PO
[2024-09-05 13:53] LABS: BASOPHILS % 0.2 % (0.0-1.0); EOSINOPHILS % 0.5 % (0.0-6.0); LYMPHOCYTES % 8.1 % (18.0-39.1); MONOCYTES % 8.4 % (4.4-11.3); NEUTROPHILS % 82.6 % (38.7-80.0); RED CELL DISTRIBUTION WIDTH 15.3 % (11.7-14.4)
[2024-09-05] MEDS: ONDANSETRON HCL INJ 2MG/ML 2ML 2 MG/ML VIAL IV STA (13:59)
[2024-09-05] MEDS: SODIUM CHLORIDE 0.9% 1000ML 2,720 ML IV SCH (13:59)
[2024-09-05] MEDS: ACETAMINOPHEN 1000 MG/100 ML IV ONE (14:00)
[2024-09-05 14:06] LABS: LEUKOCYTE ESTERASE ,URINE TRACE (NEGATIVE); PROTEIN,URINE DIPSTICK NEGATIVE (NEGATIVE)
[2024-09-05 14:07] LABS: EPITHELIAL CELLS,URINE FEW /LPF; URINE UROBILINOGEN 0.2 mg/dL (0.2 - 1)
[2024-09-05 14:11] LABS: EST GLOMERULAR FILTRATION RATE 76.0 ML/MIN (>=60)
[2024-09-05 14:14] LABS: INR 0.88
[2024-09-05 14:16] LABS: STREPTOCOCCUS GRP A ANTIGEN NEGATIVE (NEGATIVE)
[2024-09-05 14:17] LABS: CORONAVIRUS COVID-19 AG NEGATIVE (NEGATIVE)
[2024-09-05] MEDS: Vancomycin IV 1 GM in SODIUM CHLORIDE 0.9% 250ML 250 ML IV ONE (15:13)
[2024-09-05] MEDS: SODIUM CHLORIDE 0.9% 1000ML 1,000 ML IV SCH (16:00)
[2024-09-05 17:17] VITALS: PULSE 82; RESP 16; TEMP 98.2
[2024-09-05] MEDS: Morphine 2mg Syringe 2 MG/ML SYR IV PRN (18:35)
[2024-09-05] MEDS: ONDANSETRON HCL INJ 2MG/ML 2ML 2 MG/ML VIAL IV PRN (18:36)
[2024-09-05 19:41] VITALS: BP 158/83; PULSE 77; RESP 18; TEMP 98.9; O2SAT 100
[2024-09-05 23:05] VITALS: BP 188/79; PULSE 87; RESP 18; TEMP 99.3; O2SAT 97
[2024-09-05] MEDS ORDERED: ZYRTEC10 M3 (23:32)
[2024-09-05] MEDS ORDERED: OZEMPIC1 MG/0.71 (23:33)
[2024-09-06] VITALS (11 sets, daily range): BP systolic 140–163; BP diastolic 60–79; PULSE 70–90; RESP 18–22; TEMP 97.5–100.7; O2SAT 95–100
[2024-09-06] MEDS ORDERED: LABETALOL HCL 5 MG/ML 20ML VIAL IV PRN (00:15)
[2024-09-06 06:11] LABS: BASOPHILS % 0.3 % (0.0-1.0); EOSINOPHILS % 0.1 % (0.0-6.0); LYMPHOCYTES % 14.3 % (18.0-39.1); MONOCYTES % 13.0 % (4.4-11.3); NEUTROPHILS % 72.0 % (38.7-80.0); RED CELL DISTRIBUTION WIDTH 15.5 % (11.7-14.4)
[2024-09-06 06:40] LABS: EST GLOMERULAR FILTRATION RATE 81.0 ML/MIN (>=60)
[2024-09-06 07:08] LABS: CHOL/HDL RATIO 2.6 (3.0-3.6); LDL CHOLESTEROL 43.0 MG/DL (60-130); PHOSPHORUS 3.2 MG/DL (2.3-4.7)
[2024-09-06] MEDS: LORATADINE 10 MG TAB PO SCH (09:15)
[2024-09-07] VITALS (10 sets, daily range): BP systolic 109–168; BP diastolic 65–86; PULSE 60–80; RESP 18–20; TEMP 97.7–98.6; O2SAT 95–100
[2024-09-07] MEDS: ACETAMINOPHEN 325 MG TAB PO PRN (00:14)
[2024-09-07 05:27] LABS: BASOPHILS % 0.3 % (0.0-1.0); EOSINOPHILS % 1.0 % (0.0-6.0); LYMPHOCYTES % 20.6 % (18.0-39.1); MONOCYTES % 14.1 % (4.4-11.3); NEUTROPHILS % 63.4 % (38.7-80.0); RED CELL DISTRIBUTION WIDTH 15.0 % (11.7-14.4)
[2024-09-07 06:13] LABS: EST GLOMERULAR FILTRATION RATE 90.0 ML/MIN (>=60)
[2024-09-07] MEDS ORDERED: ACETAMIN/BUTALBITAL/CAFFEINE TAB PO PRN (11:30)
[2024-09-07] MEDS: FLUTICASONE PROPIONATE NASAL SPRAY NS SCH (16:49)
[2024-09-08] VITALS: BP 148/85; PULSE 73; RESP 20; TEMP 98.1; O2SAT 99
[2024-09-08 04:00] VITALS: BP 135/67; PULSE 69; RESP 20; TEMP 97.7; O2SAT 96
[2024-09-08 07:13] LABS: BASOPHILS % 0.2 % (0.0-1.0); EOSINOPHILS % 0.8 % (0.0-6.0); LYMPHOCYTES % 17.5 % (18.0-39.1); MONOCYTES % 9.4 % (4.4-11.3); NEUTROPHILS % 71.9 % (38.7-80.0); RED CELL DISTRIBUTION WIDTH 14.9 % (11.7-14.4)
[2024-09-08 07:46] LABS: EST GLOMERULAR FILTRATION RATE 92.0 ML/MIN (>=60)
[2024-09-08 07:54] VITALS: BP 145/89; PULSE 71; RESP 20; TEMP 98.1; O2SAT 100
[2024-09-08 08:28] VITALS: PULSE 78; RESP 18; O2SAT 100
[2024-09-08 08:44] VITALS: BP 145/89; PULSE 71; RESP 20; TEMP 98.1; O2SAT 100
[2024-09-08 12:27] VITALS: BP 133/76; PULSE 80; RESP 20; TEMP 97.9; O2SAT 96
[2024-09-08] MEDS ORDERED: CEFUROXIME500 MG PO (14:27)
== END 2024-09-08 15:50 | disposition home or self-care (01) | DRG 690 ==
LOC: ER 13:27 → ERHOLD 16:04 → MED/SURG3 18:19
PROVIDERS: ADMIT Internal Medicine; ATTEND Internal Medicine
DX: N10 Acute pyelonephritis (principal); N39.0 Urinary tract infection, site not specified; E11.9 Type 2 diabetes mellitus without complications; I10 Essential (primary) hypertension; E66.9 Obesity, unspecified; Z68.37 Body mass index [BMI] 37.0-37.9, adult; G47.33 Obstructive sleep apnea (adult) (pediatric); R53.81 Other malaise; L40.50 Arthropathic psoriasis, unspecified; Z11.52 Encounter for screening for COVID-19; Z79.52 Long term (current) use of systemic steroids; Z79.84 Long term (current) use of oral hypoglycemic drugs; Z90.5 Acquired absence of kidney; Z98.84 Bariatric surgery status; Z88.2 Allergy status to sulfonamides
CPT/HCPCS: 36415; 71045; 74176; 80048; 80053; 80061; 81001; 82948; 83036; 83518; 83605; 83735; 84100; 84439; 84443; 85025; 85610; 85730; 87040; 87070; 87086; 93005; 94799; 99284; J0696; J2270; J2405; J2470; J3373; J7030; J7050